=== PATIENT | female | born 1960 | race Caucasian/White ===

== ENCOUNTER → 2017-01-04 | Outpatient (CLI) | payer BC ==
[~2017-01-04] MED LIST: MULT-234 PO; MULTTAB58 PO; OMEG12006 PO
--- NOTE | 2017-01-04 12:38 | MAMMOGRAPHY REPORT ---
BILATERAL DIGITAL SCREENING MAMMOGRAM TOMOSYNTHESIS WITH CAD: 01/04/2017 CLINICAL HISTORY: Routine screening. Patient has no complaints. TECHNIQUE: Breast tomosynthesis in addition to standard 2D mammography was performed. Current study was also evaluated with a Computer Aided Detection (CAD) system. COMPARISON: Comparison is made to exams dated: 01/01/2016 mammogram, 12/19/2013 mammogram, 12/30/2014 ma mmogram, 12/24/2013 mammogram, 11/05/2012 mammogram, and 11/03/2011 mammogram - [facility]. BREAST COMPOSITION: The tissue of both breasts is heterogeneously dense, which may obscure small ma sses. FINDINGS: No suspicious masses, calcifications, or areas of architectural distortion are noted in e ither breast. There has been no significant interval change compared to prior exams. IMPRESSION: ACR BI-RADS CATEGORY 1: NEGATIVE There is no mammographic evidence of malignancy. A 1 year screening mammogram is recommended. The p atient will receive written notification of the results. Approximately 10% of breast cancers are not detected with mammography. A negative mammographic repor t should not delay biopsy if a clinically suggestive mass is present. Celine Ty M.D. ah/:01/04/2017 12:02:55 Health Policy Manager: Aicha WHEELER(R)(M), [facility] letter sent: Normal 1/2 BI-RADS Code: ACR BI-RADS Category 1: Negative
== END | disposition home or self-care (01) ==
LOC: C.MAMM 08:03
PROVIDERS: ATTEND Family Medicine
DX: Z12.31 Encounter for screening mammogram for malignant neoplasm of breast (principal)

== ENCOUNTER → 2018-01-08 | Outpatient (CLI) | payer OTHER ==
--- NOTE | 2018-01-09 15:14 | MAMMOGRAPHY REPORT ---
BILATERAL DIGITAL SCREENING MAMMOGRAM TOMOSYNTHESIS WITH CAD: 01/08/2018 CLINICAL HISTORY: Routine screening. TECHNIQUE: Breast tomosynthesis in addition to standard 2D mammography was performed. Current study was also evaluated with a Computer Aided Detection (CAD) system. COMPARISON: Comparison is made to exams dated: 01/04/2017 mammogram, 01/01/2016 mammogram, 12/30/2014 mamm ogram, 12/19/2013 mammogram, 11/05/2012 mammogram, and 11/03/2011 mammogram - [facility] . BREAST COMPOSITION: The tissue of both breasts is heterogeneously dense, which may obscure small mas ses. FINDINGS: There are benign rim calcifications in the left breast. No suspicious mass, architectural distortion or cluster of microcalcifications is seen. IMPRESSION: ACR BI-RADS CATEGORY 1: NEGATIVE There is no mammographic evidence of malignancy. A 1 year screening mammogram is recommended. The pa tient will receive written notification of the results. Approximately 10% of breast cancers are not detected with mammography. A negative mammographic report should not delay biopsy if a clinically suggestive mass is present. Yee Corley M.D. ay/:01/08/2018 16:37:39 Collections Specialist: Edel WHEELER(Felice)(M), [facility] letter sent: Normal 1/2 BI-RADS Code: ACR BI-RADS Category 1: Negative
== END | disposition home or self-care (01) ==
LOC: C.MAMM 07:56
PROVIDERS: ATTEND Family Medicine
DX: Z12.31 Encounter for screening mammogram for malignant neoplasm of breast (principal)

== ENCOUNTER 2021-10-25 12:27 | Inpatient (IN) ==
[2021-10-25 14:55] LABS: Hematocrit (blood only) 33.1 % (37-47); Hemoglobin 11.1 g/dL (12.0-16.0); Mean Corpuscular Hemoglobin 29.3 pg (25-34); Mean Corpuscular Hgb Conc 33.5 g/dL (32-36); Mean Corpuscular Volume 87.3 fL (80-100); Mean Platelet Volume 9.5 fL (7.4-10.4); Platelet Count 378 K/uL (130-400); RDW Coefficient of Variation 13.9 % (11.5-14.5); RDW Standard Deviation 44.9 fL (36.4-46.3); Red Blood Count 3.79 M/uL (4.2-5.4); White Blood Count 25.49 K/uL (4.8-10.8)
[2021-10-25 15:17] LABS: Albumin Level 2.8 gm/dl (3.4-5.0); BUN Creatinine Ratio 12.9 (10-20); Calcium 9.4 mg/dl (8.5-10.1); Creatinine Clr Calc Pharmacy 93.3 ml/min; Est GFR (African American) 117.2 ml/min; Est GFR (Non-African American) 101.1 ml/min; Potassium 3.7 mmol/L (3.5-5.1)
[2021-10-25 15:20] LABS: Albumin Globulin Ratio 0.6 (0.9-2); Bilirubin,Total 0.6 mg/dl (0.2-1); Total Protein 7.8 gm/dl (6.4-8.2)
[2021-10-25 15:49] LABS: Basophils # (auto) 0.04 K/uL (0-0.2); Basophils % (auto) 0.2 %; Eosinophils # (auto) 0.01 K/uL (0-0.5); Immature Granulocytes # (auto) 0.29 K/uL (0.00-0.02); Immature Granulocytes % (auto) 1.1 %; Lymphocytes # (auto) 1.09 K/uL (1.2-3.4); Lymphocytes % (auto) 4.3 %; Monocytes # (auto) 2.06 K/uL (0.11-0.59); Monocytes % (auto) 8.1 %; Neutrophils % (auto) 86.3 %
[2021-10-25] MEDS ORDERED: SODIUM CHLORIDE 0.9% 1000ML 1,000 ML IV ONE (17:04)
[2021-10-25] MEDS ORDERED: MIDAZOLAM HCL 1 MG/ML 2ML VIAL IV STA (17:15)
--- NOTE | 2021-10-25 17:17 | Emergency Department Note ---
Impression & Plan Headache, Leukocytosis ADMIT ED Provider Note HPI: The patient is a 61-year-old female who presents the emergency department with a chief complaint of posterior headache and neck pain for the past 5 days. Patient states that approximately 5 days ago she noted that she had a fever, she states she also had some sinus congestion at that time. She states that she had some difficulty sleeping overnight because of some posterior neck pain and headache. She states that the symptoms have been relatively persistent for the past 5 days. Her headache is localized to the base of her skull and suboccipital muscle area. She has limited range of motion of her neck secondary to pain. On arrival here to the ED the patient is afebrile, she is saturating well on room air, she is alert, she is otherwise in mild distress secondary to her headache but hemodynamically stable on arrival. ROS: -Neuro: Posterior headache *10 point review systems was conducted and is otherwise negative unless stated above *Outpatient medications and allergy history reviewed PE: General: Alert, NAD HEENT: Normocephalic, atraumatic, trachea midline Eyes: Extraocular eye movement is intact, no scleral erythema Pulmonary: Clear to auscultation bilaterally, no wheezing Cardio: Regular rate and rhythm GI: Abdomen is soft, nontender : No suprapubic tenderness MSK: No evidence of trauma or malformation of the extremities, no edema, there is firm and tender musculature in the area of the suboccipital muscles bilaterally, limited range of motion of the neck secondary to pain and muscle tenderness Skin: No evidence of rash Neuro: Alert, no focal deficits Psychiatric: Cooperative Lumbar puncture: Verbal consent was obtained. Patient was placed in a seated position, L3/L4 interspace was identified, patient was sterilely prepped and draped. L3/L4 interspace was prepped, anesthetized using 1% lidocaine without epinephrine. 22-gauge needle was advanced and bony resistance was met, there was slight repositioning of the needle in the cephalad direction and it was advanced again. Stylet was removed and clear CSF was drained from the spinal needle. Tubes 1 through 4 were collected. Stylette was replaced. Needle was withdrawn. Patient tolerated the procedure well. manual arts teacher: - An order was placed for continuous cardiac monitoring - Patient was noted to be in sinus rhythm with rate of 102 Medical Decision Making: Patient presented with posterior headache for the past 5 days, states she is also had some sinus congestion, states she had a fever 5 days ago, she arrives to the emergency department with limited range of motion of her neck secondary to pain. Labwork does show evidence of a significant leukocytosis greater than 25,000, blood cultures were ordered in the ED, CT imaging of the head does not show any evidence of an acute intracranial process. Procalcitonin is also noted to be slightly elevated. Patient was given IV fluids here in the ED. She was also given IV morphine for pain. Given that the patient had a posterior headache in the setting of a recent fever and a significant leukocytosis, I did discuss lumbar puncture with the patient and she is in agreement. Lumbar puncture was performed at the bedside by myself, please see procedure note for details. CSF analysis reveals a white blo od cell count elevation to 126, protein is also elevated, glucose is within normal limits. Meningitis PCR panel was sent and is negative. Gram stain is also noted to be negative. Culture is pending. Also will send for fungal culture. Patient was initiated on broad-spectrum antibiotics with vancomycin and ceftriaxone following lumbar puncture. On re-evaluation patient states that her headache is still present. I did discuss the case with the on-call hospitalist for [facility], Dr. Narayanan, patient will be admitted to the hospitalist service for further management. Patient is in agreement to the above plan she was admitted in stable condition. Diagnosis: 1. Posterior headache 2. Significant/severe leukocytosis 3. Elevated procalcitonin 4. Elevated white blood cell count on CSF analysis 5. Rule out meningitis Disposition: Admission Rl Villa DO Emergency Medicine Past Med/Surg History Social History Smoking Status: Never smoker Preferred Language: Setswana Feels Safe at Home: Yes Allergies Allergies Allergy/AdvReac Type Severity Reaction Status Date / Time No Known Allergies Allergy Verified 10/25/21 16:49 Home Meds Home Medications Medication Instructions Recorded Confirmed acetaminophen 650 mg 1,300 mg PO Q12H PRN 10/25/21 10/25/21 tablet,extended release fexofenadine 180 mg tablet 180 mg PO DAILY 10/25/21 10/25/21 [id number] 1 tab PO DAILY 10/25/21 10/25/21 tablet (Multivitamin 50 Plus) naproxen sodium 220 mg tablet 440 mg PO BID PRN 10/25/21 10/25/21 (Aleve) omega-3 fatty acids-fish oil 684 1 cap PO DAILY 10/25/21 10/25/21 mg-1,200 mg capsule,delayed release vit A 7,160 unit-vit C 113 mg-vit 1 tab PO DAILY 10/25/21 10/25/21 E-zinc gj-fsvpew-npfzfh 1 mg tablet ([facility]) Results & Data (ED) Vital Signs Vital Signs - 24 hr 10/25/21 12:54 10/25/21 16:48 10/25/21 17:30 Temperature 36.3 C L Temperature Source Temporal Artery Scan Pulse Rate 93 H Pulse Rate [Apical] 88 102 H Pulse Rhythm Regular Pulse Rhythm [Apical] Regular Regular Pulse Strength Normal Respiratory Rate 20 16 16 Respiratory Effort / Characteristics Non-Labored Spontaneous Non-Labored Non-Labored Respiratory Depth Normal Normal Normal Respiratory Pattern Regular Blood Pressure 123/80 Blood Pressure [Right Arm] 134/86 132/78 Blood Pressure Mean 94 Blood Pressure Mean [Right Arm] 102 96 Blood Pressure Position Sitting Pulse Oximetry 100 98 95 Oxygen Delivery Method Room Air Room Air Room Air Sepsis Recent Fever Within 48 Hours No Sepsis New/Unexplained Change in Mental Status No Sepsis Action Taken by Nursing No Action Required 10/25/21 18:30 Temperature Temperature Source Pulse Rate Pulse Rate [Apical] 96 H Pulse Rhythm Pulse Rhythm [Apical] Regular Pulse Strength Respiratory Rate 16 Respiratory Effort / Characteristics Non-Labored Respiratory Depth Normal Respiratory Pattern Blood Pressure Blood Pressure [Right Arm] 132/88 Blood Pressure Mean Blood Pressure Mean [Right Arm] 102 Blood Pressure Position Pulse Oximetry 99 Oxygen Delivery Method Room Air Sepsis Recent Fever Within 48 Hours Sepsis New/Unexplained Change in Mental Status Sepsis Action Taken by Nursing Laboratory Data Result diagrams: 10/25/21 14:46 10/25/21 14:46 Lab Results 10/25/21 10/25/21 10/25/21 Range/Units 14:46 14:46 14:46 WBC 25.49 H (4.8-10.8) K/uL RBC 3.79 L (4.2-5.4) M/uL Hgb 11.1 L (12.0-16.0) g/dL Hct 33.1 L (37-47) % MCV 87.3 (80-100) fL MCH 29.3 (25-34) pg MCHC 33.5 (32-36) g/dL RDW Std Deviation 44.9 (36.4-46.3) fL RDW Coeff of Lynda 13.9 (11.5-14.5) % Plt Count 378 (130-400) K/uL MPV 9.5 (7.4-10.4) fL Immature Gran % (Auto) 1.1 % Neut % (Auto) 86.3 % Lymph % (Auto) 4.3 % Boyd % (Auto) 8.1 % Eos % (Auto) 0.0 % Baso % (Auto) 0.2 % Neut # (Auto) 22.00 H (1.4-6.5) K/uL Lymph # (Auto) 1.09 L (1.2-3.4) K/uL Boyd # (Auto) 2.06 H (0.11-0.59) K/uL Eos # (Auto) 0.01 (0-0.5) K/uL Baso # (Auto) 0.04 (0-0.2) K/uL Immature Gran # (Auto) 0.29 H (0.00-0.02) K/uL Sodium 133 L (136-145) mmol/L Potassium 3.7 (3.5-5.1) mmol/L Chloride 96 L (98-107) mmol/L Carbon Dioxide 30 (21-32) mmol/L Anion Gap 7.0 (3-11) BUN 7 (7-18) mg/dl Creatinine 0.54 L (0.6-1.2) mg/dl Est Cr Clr Drug Dosing 93.3 ml/min Est GFR ( Amer) 117.2 ml/min Est GFR (Non-Af Amer) 101.1 ml/min BUN/Creatinine Ratio 12.9 (10-20) Glucose 112 H (70-99) mg/dl Lactate (0.4-2.0) mmol/L Calcium 9.4 (8.5-10.1) mg/dl Total Bilirubin 0.6 (0.2-1) mg/dl AST 37 (15-37) U/L ALT 116 H (12-78) Alkaline Phosphatase 217 H (45-117) U/L Total Protein 7.8 (6.4-8.2) gm/dl Albumin 2.8 L (3.4-5.0) gm/dl Globulin 5.0 H (2.5-4.0) gm/dl Albumin/Globulin Ratio 0.6 L (0.9-2) Procalcitonin 0.69 H (0-0.5) ng/ml Fluid Comment CSF Appearance CSF Color Xanthrochromic CSF WBC (0-5) /uL CSF RBC (0-) /uL CSF Cell Count Tube # CSF Mononuclear WBCs % % CSF Polynuclear WBCs % % CSF Chemistry Tube # CSF Glucose (40-70) mg/dl CSF Total Protein (15-45) mg/dl CSF C.neoform/gat PCR (NotDetected) CSF CMV DNA (PCR) (NotDetected) CSF Enterovirus (PCR) (NotDetected) CSF E. coli K1 (PCR) (NotDetected) CSF H. influenzae (PCR) (NotDetected) CSF HSV I (PCR) (NotDetected) CSF HSV II (PCR) (NotDetected) CSF HHV 6 (PCR) (NotDetected) CSF L.monocytogenes PCR (NotDetected) CSF N. meningitidis PCR (NotDetected) CSF Parechovirus (PCR) (NotDetected) CSF S. agalactiae (PCR) (NotDetected) CSF S. pneumoniae (PCR) (NotDetected) CSF VZV DNA (PCR) (NotDetected) SARS-CoV-2 (PCR) (Negative) Influenza Type A (PCR) (Neg) Influenza Type B (PCR) (Neg) RSV (RT-PCR) (Neg) 10/25/21 10/25/21 10/25/21 Range/Units 17:25 17:45 19:48 WBC (4.8-10.8) K/uL RBC (4.2-5.4) M/uL Hgb (12.0-16.0) g/dL Hct (37-47) % MCV (80-100) fL MCH (25-34) pg MCHC (32-36) g/dL RDW Std Deviation (36.4-46.3) fL RDW Coeff of Lynda (11.5-14.5) % Plt Count (130-400) K/uL MPV (7.4-10.4) fL Immature Gran % (Auto) % Neut % (Auto) % Lymph % (Auto) % Boyd % (Auto) % Eos % (Auto) % Baso % (Auto) % Neut # (Auto) (1.4-6.5) K/uL Lymph # (Auto) (1.2-3.4) K/uL Boyd # (Auto) (0.11-0.59) K/uL Eos # (Auto) (0-0.5) K/uL Baso # (Auto) (0-0.2) K/uL Immature Gran # (Auto) (0.00-0.02) K/uL Sodium (136-145) mmol/L Potassium (3.5-5.1) mmol/L Chloride (98-107) mmol/L Carbon Dioxide (21-32) mmol/L Anion Gap (3-11) BUN (7-18) mg/dl Creatinine (0.6-1.2) mg/dl Est Cr Clr Drug Dosing ml/min Est GFR ( Amer) ml/min Est GFR (Non-Af Amer) ml/min BUN/Creatinine Ratio (10-20) Glucose (70-99) mg/dl Lactate 0.8 (0.4-2.0) mmol/L Calcium (8.5-10.1) mg/dl Total Bilirubin (0.2-1) mg/dl AST (15-37) U/L ALT (12-78) Alkaline Phosphatase (45-117) U/L Total Protein (6.4-8.2) gm/dl Albumin (3.4-5.0) gm/dl Globulin (2.5-4.0) gm/dl Albumin/Globulin Ratio (0.9-2) Procalcitonin (0-0.5) ng/ml Fluid Comment CSF Appearance CSF Color Xanthrochromic CSF WBC (0-5) /uL CSF RBC (0-) /uL CSF Cell Count Tube # CSF Mononuclear WBCs % % CSF Polynuclear WBCs % % CSF Chemistry Tube # CSF Glucose (40-70) mg/dl CSF Total Protein (15-45) mg/dl CSF C.neoform/gat PCR Not Detected (NotDetected) CSF CMV DNA (PCR) Not Detected (NotDetected) CSF Enterovirus (PCR) Not Detected (NotDetected) CSF E. coli K1 (PCR) Not Detected (NotDetected) CSF H. influenzae (PCR) Not Detected (NotDetected) CSF HSV I (PCR) Not Detected (NotDetected) CSF HSV II (PCR) Not Detected (NotDetected) CSF HHV 6 (PCR) Not Detected (NotDetected) CSF L.monocytogenes PCR Not Detected (NotDetected) CSF N. meningitidis PCR Not Detected (NotDetected) CSF Parechovirus (PCR) Not Detected (NotDetected) CSF S. agalactiae (PCR) Not Detected (NotDetected) CSF S. pneumoniae (PCR) Not Detected (NotDetected) CSF VZV DNA (PCR) Not Detected (NotDetected) SARS-CoV-2 (PCR) NEGATIVE (Negative) Influenza Type A (PCR) Negative (Neg) Influenza Type B (PCR) Negative (Neg) RSV (RT-PCR) Negative (Neg) 10/25/21 Range/Units 19:48 WBC (4.8-10.8) K/uL RBC (4.2-5.4) M/uL Hgb (12.0-16.0) g/dL Hct (37-47) % MCV (80-100) fL MCH (25-34) pg MCHC (32-36) g/dL RDW Std Deviation (36.4-46.3) fL RDW Coeff of Lynda (11.5-14.5) % Plt Count (130-400) K/uL MPV (7.4-10.4) fL Immature Gran % (Auto) % Neut % (Auto) % Lymph % (Auto) % Boyd % (Auto) % Eos % (Auto) % Baso % (Auto) % Neut # (Auto) (1.4-6.5) K/uL Lymph # (Auto) (1.2-3.4) K/uL Boyd # (Auto) (0.11-0.59) K/uL Eos # (Auto) (0-0.5) K/uL Baso # (Auto) (0-0.2) K/uL Immature Gran # (Auto) (0.00-0.02) K/uL Sodium (136-145) mmol/L Potassium (3.5-5.1) mmol/L Chloride (98-107) mmol/L Carbon Dioxide (21-32) mmol/L Anion Gap (3-11) BUN (7-18) mg/dl Creatinine (0.6-1.2) mg/dl Est Cr Clr Drug Dosing ml/min Est GFR ( Amer) ml/min Est GFR (Non-Af Amer) ml/min BUN/Creatinine Ratio (10-20) Glucose (70-99) mg/dl Lactate (0.4-2.0) mmol/L Calcium (8.5-10.1) mg/dl Total Bilirubin (0.2-1) mg/dl AST (15-37) U/L ALT (12-78) Alkaline Phosphatase (45-117) U/L Total Protein (6.4-8.2) gm/dl Albumin (3.4-5.0) gm/dl Globulin (2.5-4.0) gm/dl Albumin/Globulin Ratio (0.9-2) Procalcitonin (0-0.5) ng/ml Fluid Comment CSF Appearance CLEAR CSF Color COLORLESS Xanthrochromic NO CSF WBC 126 H* (0-5) /uL CSF RBC 0 (0-) /uL CSF Cell Count Tube # 3 CSF Mononuclear WBCs % 71.0 % CSF Polynuclear WBCs % 29.0 % CSF Chemistry Tube # 1 CSF Glucose 58 (40-70) mg/dl CSF Total Protein 70.5 H (15-45) mg/dl CSF C.neoform/gat PCR (NotDetected) CSF CMV DNA (PCR) (NotDetected) CSF Enterovirus (PCR) (NotDetected) CSF E. coli K1 (PCR) (NotDetected) CSF H. influenzae (PCR) (NotDetected) CSF HSV I (PCR) (NotDetected) CSF HSV II (PCR) (NotDetected) CSF HHV 6 (PCR) (NotDetected) CSF L.monocytogenes PCR (NotDetected) CSF N. meningitidis PCR (NotDetected) CSF Parechovirus (PCR) (NotDetected) CSF S. agalactiae (PCR) (NotDetected) CSF S. pneumoniae (PCR) (NotDetected) CSF VZV DNA (PCR) (NotDetected) SARS-CoV-2 (PCR) (Negative) Influenza Type A (PCR) (Neg) Influenza Type B (PCR) (Neg) RSV (RT-PCR) (Neg) Administered Medications Vancomycin HCl 1,250 mg/ (Sodium Chloride) 525 mls @ 200 mls/hr IV NOW ONE Stop: 10/25/21 22:28 Last Admin: 10/25/21 20:26 Dose: 200 mls/hr Documented by: [id number] Discontinued Medications Sodium Chloride (Nss 1000ml) 1,000 mls @ 999 mls/hr IV .Q1H1M ONE Stop: 10/25/21 18:04 Last Infusion: 10/25/21 18:45 Dose: 0 mls/hr Documented by: [id number] Admin: 10/25/21 17:40 Dose: 999 mls/hr Documented by: [id number] Ceftriaxone Sodium (Rocephin) 1,000 mg in 50 mls @ 100 mls/hr IV NOW STA Stop: 10/25/21 20:20 Last Infusion: 10/25/21 20:26 Dose: 0 mls/hr Documented by: [id number] Admin: 10/25/21 20:04 Dose: 100 mls/hr Documented by: [id number] Midazolam HCl (Midazolam Hcl 1 Mg/Ml 2ml Vial) 2 mg IV NOW STA Stop: 10/25/21 17:16 Last Admin: 10/25/21 17:41 Dose: 2 mg Documented by: [id number] Morphine Sulfate (Morphine Sulfate 4 Mg/Ml 1 Ml Carp\Vial) 4 mg IV NOW STA Stop: 10/25/21 21:29 Last Admin: 10/25/21 21:34 Dose: 4 mg Documented by: [id number] Ondansetron HCl (Ondansetron Inj 2 Mg/Ml 2 Ml Vial) Confirm Administered Dose 4 mg .ROUTE .STK-MED ONE Stop: 10/25/21 17:39 Last Admin: 10/25/21 17:40 Dose: 4 mg Documented by: [id number] Imaging Data Radiologist's Impression: Head CT 10/25/21 17:03 CT SCAN OF THE BRAIN WITHOUT IV CONTRAST CLINICAL HISTORY: Headache. COMPARISON STUDY: CT of the brain dated 06/30/2013. TECHNIQUE: Unenhanced axial CT scan of the brain is performed from the vertex to the skull base. A dose lowering technique was utilized adhering to the principles of ALARA. CT DOSE: 638.56 mGycm FINDINGS: Brain parenchyma: The brain parenchyma is normal in appearance. There is no hemorrhage, mass effect, or evidence of acute territorial ischemia by CT criteria. Martínez-white matter differentiation is preserved. No extra-axial fluid collection is seen. Ventricles, sulci, cisterns: Normal in configuration. Intracranial vasculature: There is mild atherosclerotic calcification of the cavernous carotid arteries. Calvarium: Unremarkable. Sinuses and mastoids: An air-fluid level is noted in the right maxillary antrum. The remaining visualized paranasal sinuses are clear. The mastoid air cells are well pneumatized. Orbits: The bony orbits are grossly intact. IMPRESSION: There is no hemorrhage, mass effect, or evidence of acute territorial ischemia by CT criteria. ACT 112: Negative or not required by law. Electronically signed by: Elías Begum M.D. 10/25/2021 6:46 PM Discharge Plan Visit Data Chief Complaint: Neck Injury/Pain Stated Complaint: NECK PAIN ED Provider: Rl Villa Discharge Problem: Headache, Leukocytosis Forms Stand Alone Forms: [facility] [employer] Prescriptions Prescriptions: No Action fexofenadine [Es] 180 mg Tablet 180 mg PO DAILY RF: 0 acetaminophen [Tylenol Arthritis] 650 mg Tablet Extended Release 1,300 mg PO Q12H PRN (Reason: Pain) RF: 0 naproxen sodium [Aleve] 220 mg Tablet 440 mg PO BID PRN (Reason: Pain) RF: 0 Multivitamin 50 Plus Tablet 1 tab PO DAILY RF: 0 [place] 3 Fish Oil 684-1,200 mg Capsule,Delayed Release(Dr/Ec) 1 cap PO DAILY RF: 0 [facility] 7,160 unit- 113 mg-1 mg Tablet 1 tab PO DAILY RF: 0 Referrals Referrals: Elroy Olivo DO [Primary Care Provider] - Discharge Problem: Headache Qualifiers: Headache type: unspecified Headache chronicity pattern: unspecified pattern Intractability: intractable Qualified Code(s): R51.9 - Headache, unspecified Leukocytosis Qualifiers: Leukocytosis type: unspecified Qualified Code(s): D72.829 - Elevated white blood cell count, unspecified
[2021-10-25] MEDS ORDERED: ONDANSETRON INJ 2 MG/ML 2 ML VIAL ONE (17:38)
[2021-10-25 18:36] LABS: Influenza A virus by PCR Negative (Neg); Influenza B virus by PCR Negative (Neg); RSV by PCR Negative (Neg); SARS CoV2 RNA(COVID-19) InHosp NEGATIVE (Negative)
--- NOTE | 2021-10-25 18:48 | CT Scan Report ---
CT SCAN OF THE BRAIN WITHOUT IV CONTRAST CLINICAL HISTORY: Headache. COMPARISON STUDY: CT of the brain dated 06/30/2013. TECHNIQUE: Unenhanced axial CT scan of the brain is performed from the vertex to the skull base. A d ose lowering technique was utilized adhering to the principles of ALARA. CT DOSE: 638.56 mGycm FINDINGS: Brain parenchyma: The brain parenchyma is normal in appearance. There is no hemorrhage, mass effect, or evidence of acute territorial ischemia by CT criteria. Martínez-white matter differentiation is preser grazyna. No extra-axial fluid collection is seen. Ventricles, sulci, cisterns: Normal in configuration. Intracranial vasculature: There is mild atherosclerotic calcification of the cavernous carotid arteri es. Calvarium: Unremarkable. Sinuses and mastoids: An air-fluid level is noted in the right maxillary antrum. The remaining visual ized paranasal sinuses are clear. The mastoid air cells are well pneumatized. Orbits: The bony orbits are grossly intact. IMPRESSION: There is no hemorrhage, mass effect, or evidence of acute territorial ischemia by CT mandeep rucker. ACT 112: Negative or not required by law. Electronically signed by: Elías Begum M.D. 10/25/2021 6:46 PM
[2021-10-25] MEDS ORDERED: VANCOMYCIN HCL 1,250 MG in SODIUM CHLORIDE 0.9% 500 ML IV ONE (19:51)
[2021-10-25] MEDS ORDERED: VANCOMYCIN CONSULT ACTIVE PRN (19:51)
[2021-10-25] MEDS ORDERED: cefTRIAXone SODIUM 1,000 MG/50 ML BAG IV STA ×2 (19:51→23:21)
[2021-10-25 20:27] LABS: CSF Glucose 58 mg/dl (40-70)
[2021-10-25 20:28] LABS: Total Protein CSF 70.5 mg/dl (15-45)
[2021-10-25 20:48] LABS: CSF Chemistry Tube # 1
[2021-10-25 20:50] LABS: Appearance CSF CLEAR; CSF Count Tube # 3; CSF Xanthrochromic NO; Color CSF COLORLESS
[2021-10-25 20:52] LABS: Red Blood Cell CSF (A) 0 /uL (0-); Red Blood Cell CSF (B) 1 /uL (0-); White Blood Cell CSF (B) 120 /uL (0-5)
[2021-10-25 20:53] LABS: White Blood Cell CSF (A) 126 /uL (0-5)
[2021-10-25] MEDS ORDERED: MoRPHine SULFATE 4 MG/ML 1 ML CARP\\VIAL IV STA (21:28)
[2021-10-25 21:48] LABS: Cryptococcus neoformans/ga PCR Not Detected (NotDetected); Cytomegalovirus PCR Not Detected (NotDetected); Enterovirus PCR Not Detected (NotDetected); Escherichia coli K1 PCR Not Detected (NotDetected); Haemophilius influenzae PCR Not Detected (NotDetected); Herpes Simplex Virus 1 PCR Not Detected (NotDetected); Herpes Simplex Virus 2 PCR Not Detected (NotDetected); Human Herpes Virus 6 PCR Not Detected (NotDetected); Human Parechovirus PCR Not Detected (NotDetected); Listeria monocytogenes PCR Not Detected (NotDetected); Neisseria meningitidis PCR Not Detected (NotDetected); Streptococcus agalactiae PCR Not Detected (NotDetected); Streptococcus pneumoniae PCR Not Detected (NotDetected); Varicella Zoster Virus PCR Not Detected (NotDetected)
[2021-10-25 23:03] LABS: Appearance Urine Clear (Clear); Bacteria Urine Automated Negative (Negative); Bilirubin Urine Negative (Negative); Blood Urine Trace (Negative); Cast Urine Automated 0 /lpf (0-5); Color Urine Yellow; Epithelial Cell Urine Auto 20-30 /lpf (0-5); Glucose Urine UA Negative (Negative); Ketones Urine 2+ (Negative); Leukocyte Esterase Urine Negative (Negative); Nitrite Urine Positive (Negative); Protein Urine Trace (Negative); RBC Urine Automated 0-4 /hpf (0-4); Specific Gravity Urine 1.009 (1.000-1.030); Urobilinogen Urine Negative (Negative); pH Urine 6.5 (4.5-7.5)
[2021-10-25] MEDS ORDERED: cefTRIAXone SODIUM 1,000 MG in DEXTROSE 5% 50 ML IV STA (23:12)
--- NOTE | 2021-10-26 01:35 | History and Physical Report ---
DATE OF ADMISSION: 10/25/2021. CHIEF COMPLAINT: Severe neck pain and neck stiffness. HISTORY OF PRESENT ILLNESS: A 61-year-old female with past medical history significant for allergic rhinitis, presents with severe neck pain, neck stiffness going on for a week. A few days back, she also had a high temperature of 103 degrees. She is COVID vaccinated with a booster also given and she came to the ER today and her white count was 25,[address] of the head was unremarkable. Lumbar puncture done in the ER showed CSF WBC 126, CSF total protein 70. PCR for Cryptococcus neoformans, CMV enterovirus, E. coli, H influenza, HSV 1 and 2, HHV-6, Listeria, Neisseria. Strep pneumoniae and Strep agalactiae are not detected. Currently, the patient has headache and also back pain and neck stiffness and neck pain. Was nauseous. No chest pain, no shortness of breath. Has some runny nose from her sinuses and cough from her sinuses. Appetite is down. No shortness of breath. Normal bowel and bladder movements. Urine is somewhat dark. No blood in the stools or black stools. Hemodynamically stable. ALLERGIES: No known drug allergies. PAST MEDICAL HISTORY: As mentioned above. PAST SURGICAL HISTORY: Colonoscopy, dental surgery. MEDICATIONS: The patient is on Tylenol Arthritis p.r.n., Es 180 mg p.o. daily, multivitamins 1 tablet p.o. daily, naproxen 440 mg p.o. b.i.d. p.r.n., fish oil 1 capsule p.o. daily. FAMILY HISTORY: Significant for mother has arthritis, eye problem, hypertension; daughter has thyroid cancer; father has diabetes; brother has eye problems; father has eye problems; mother has eye problems. SOCIAL HISTORY: . No smoking. Alcohol about four glasses of wine per week. No drug use. REVIEW OF SYSTEMS: As per HPI. Rest of the review of systems is negative. PHYSICAL EXAMINATION: GENERAL: The patient is alert and oriented, not in acute distress. VITAL SIGNS: Temperature 36.9, pulse 102, respiratory rate 20, blood pressure 133/82, oxygen 94% on room air. HEENT: No pallor. No icterus. Oral mucosa moist. NECK: No neck masses seen. Neck tenderness present. Neck stiffness present. CARDIOVASCULAR: S1 and S2 heard. Regular rate and rhythm. No murmur, no gallop. RESPIRATORY: Normal AP diameter. No accessory muscle use. No wheezing, no crackles. ABDOMEN: Soft, bowel sounds present, nontender, no distention. CENTRAL NERVOUS SYSTEM: Cranial nerves II-XII grossly intact, nonfocal. EXTREMITIES: No edema, no erythema. LABORATORY DATA: WBC 25, hemoglobin 11.1, hematocrit 33.1, platelets 378. Sodium 133, potassium 3.7, chloride 96, bicarbonate 30, BUN 7, creatinine 0.5, serum glucose 112. Lactate 0.8, calcium 9.4, total bilirubin 0.6, AST 37, ALT 116, alkaline phosphatase 217. Procalcitonin 0.69. Urinalysis, +2 ketones plus positive nitrite. Lumbar puncture, CSF WBCs 126, total protein 70.5, glucose is 58, color is colorless and PCR for C. neoformans and CMV DNA enterovirus, E. coli, H. influenza, HSV 1, HSV 2, HHV-6, Listeria monocytogenes. Neisseria meningitidis, parechovirus, Strep agalactiae, Strep pneumoniae, VZV DNA, all PCR are negative so far. SARS-CoV-2 PCR negative. Influenza A and B PCR negative. RSV PCR negative. IMAGING DATA: CT of the head, no acute findings. ASSESSMENT AND PLAN: This is a 61-year-old female who presents with severe neck pain, neck stiffness, and found to have meningitis. 1. Severe neck pain, neck stiffness, meningitis, bacterial versus viral meningitis. CSF WBC 126, C-reactive protein is 70, CSF glucose is 58, it is colorless, and so far all the PCR studies as mentioned above are negative. ER empirically started on vancomycin and Rocephin, which will be continued. Follow the final cultures and consult ID for further recommendation. Pain control with morphine p.r.n. Closely monitor in the [place] [employer] tele. 2. History of allergic rhinitis: Continue fexofenadine. 3. Deep venous thrombosis prophylaxis: Lovenox. DISPOSITION: Closely monitor in the [place] [employer] tele. PT/OT prior to discharge. Social service to help with discharge planning. Job ID: [id number] [facility]
[2021-10-26] MEDS ORDERED: NITROGLYCERIN SL 0.4 MG/TAB TAB SL PRN (02:17)
[2021-10-26] MEDS ORDERED: ONDANSETRON INJ 2 MG/ML 2 ML VIAL IV PRN (02:17)
[2021-10-26] MEDS: ACETAMINOPHEN 325 MG TAB PO PRN ×2 (03:13→22:25)
[2021-10-26] MEDS: MoRPHine SULFATE 4 MG/ML 1 ML CARP\\VIAL IV PRN ×3 (03:16→22:27)
[2021-10-26] MEDS: ENOXAPARIN INJ 40 MG/0.4 ML SYR SQ SCH (05:44)
[2021-10-26 05:54] LABS: Hematocrit (blood only) 29.3 % (37-47); Hemoglobin 9.7 g/dL (12.0-16.0); Mean Corpuscular Hgb Conc 33.1 g/dL (32-36); Mean Corpuscular Volume 87.7 fL (80-100); Mean Platelet Volume 9.9 fL (7.4-10.4); Platelet Count 373 K/uL (130-400); RDW Coefficient of Variation 14.2 % (11.5-14.5); RDW Standard Deviation 45.8 fL (36.4-46.3); Red Blood Count 3.34 M/uL (4.2-5.4); White Blood Count 24.82 K/uL (4.8-10.8)
[2021-10-26 06:16] LABS: Basophils # (auto) 0.03 K/uL (0-0.2); Basophils % (auto) 0.1 %; Eosinophils # (auto) 0.02 K/uL (0-0.5); Eosinophils % (auto) 0.1 %; Immature Granulocytes # (auto) 0.17 K/uL (0.00-0.02); Immature Granulocytes % (auto) 0.7 %; Lymphocytes # (auto) 0.98 K/uL (1.2-3.4); Lymphocytes % (auto) 3.9 %; Monocytes # (auto) 2.78 K/uL (0.11-0.59); Monocytes % (auto) 11.2 %; Neutrophils # (auto) 20.84 K/uL (1.4-6.5)
[2021-10-26 06:30] LABS: BUN Creatinine Ratio 11.8 (10-20); Calcium 8.8 mg/dl (8.5-10.1); Creatinine Clr Calc Pharmacy 107.2 ml/min; Est GFR (African American) 122.7 ml/min; Est GFR (Non-African American) 105.9 ml/min; Magnesium 2.2 mg/dl (1.8-2.4); Potassium 3.3 mmol/L (3.5-5.1)
[2021-10-26] MEDS ORDERED: [UNRECOGNIZED DRUG - OTHER] PO SCH (09:00)
[2021-10-26] MEDS: FEXOFENADINE HCL 180 MG TAB PO SCH (09:28)
[2021-10-26] MEDS: VANCOMYCIN HCL 1,250 MG in SODIUM CHLORIDE 0.9% 250 ML IV SCH ×2 (09:28→21:34)
[2021-10-26] MEDS: CEROVITE ADV FORMULA TAB PO SCH (09:28)
[2021-10-26] MEDS: SODIUM CHLORIDE 0.9% 1000ML 1,000 ML IV SCH ×2 (11:25→15:57)
[2021-10-26] MEDS: cefTRIAXone SODIUM 2,000 MG in DEXTROSE 5% 50 ML IV SCH (11:25)
[2021-10-26] MEDS: ACYCLOVIR SOD 600 MG in DEXTROSE 5% 100 ML IV SCH ×2 (11:25→19:03)
--- NOTE | 2021-10-26 12:33 | Pharmacy Report ---
Pharmacy Vanc AUC Short Note - Date of Service October 26, 2021 - Assessment & Plan Assessment 61 year old F receiving vancomycin + ceftriaxone + acyclovir for treatment of possible meningitis. Pertinent microbiologic data includes: gram positive cocci in clusters growing in / BC (staph PCR indicates MSSA). CSF culture pending. Per discussion with provider, will keep patient on vancomycin for now for dual coverage of GPC bacteremia and possible meningitis. If bacterial meningitis is ruled out, would recommend stopping vancomycin + ceftriaxone and starting cefazolin for as this is drug of choice for MSSA bacteremia. Plan Vancomycin * 1250 mg (20.8 mg/kg) IV q12h * This regimen is predicted to achieve target AUC/TRAE of 400-600 mg/L.hr * AUC/TRAE is the preferred PK/PD target for vancomycin * AUC guided dosing is effective and associated with decreased risk of nephrotoxicity compared to traditional trough targets * Vanco random level ordered for 10/27 with AM labs Pharmacy will continue to follow and will adjust dose/frequency as necessary. Thank you.
--- NOTE | 2021-10-26 13:56 | Hospitalist Progress Note ---
Date of Service October 26, 2021 Assessment & Plan (1) Neck pain: Plan: Neck pain and stiffness. CSF WBC of 126, total protein of 70, glucose of 58. Concern for possible meningitis based on history of fever, neck pain and stiffness and CSF findings. CT head was unremarkable Currently on vancomycin and ceftriaxone. Under desciclovir earlier today. Patient's blood cultures growing GPC in all bottles. Continue antibiotics for now. Repeat blood cultures Get 2D echo to rule out infective endocarditis. 2D echo reviewed and negative. Due to report of initial lower back/hip pain which patient reports has resolved, CT pelvis with contrast was. CT cervical spine was also obtained in view of neck stiffness and bacteremia Mild prevertebral edema seen on CT cervical spine and the partially visualized fluid collection seen in left psoas and typical appearance for abscess. Discussed with radiologist. Dedicated contrast imaging of the spine recommended. Further spine imaging with and without contrast ordered. We will follow-up final scans to determine if surgery versus Ortho consult is needed Awaiting infectious disease consult Admission and Anticipated Discharge Date Admission Date: October 25, 2021 Subjective Patient seen and examined. Patient continues to reports neck pain just below the hairline that is now referred, associated with neck stiffness. Denies any fevers at this time no chills. Denies any nausea, vomiting, blurry vision, headache. Patient reported that symptoms started initially with lower back pain around hips laterally. Denied any central back pain. Denied any recent surgery, fall, trauma or instrumentation Denied any dysuria, freq, urgency, cough, chest pain, SOB Physical Exam Constitutional: + well hydrated; no acute distress Eyes: PERRL, conjunctivae normal, anicteric sclerae ENMT: external ear and nose normal, oropharynx normal Neck: No tenderness on palpation of neck However, limited active/passive range of movement Respiratory: normal respiratory effort, lungs clear to auscultation Cardiovascular: RRR, no murmur, no edema Gastrointestinal (Abdomen): normal bowel sounds, soft, nontender, no hepatosplenomegaly Musculoskeletal: No pedal edema Neurologic: PERRL, EOMI, accommodation nl, no face palsy, no dysarthria No SLR sign Psychiatric: A+Ox3, euthymic affect Results & Data Results & Data ([facility]) Vital Signs (Past 12 Hours) Vital Signs Pulse Resp BP Pulse Ox 10/26/21 11:36 82 15 112/68 94 10/26/21 04:00 78 16 127/66 97 10/26/21 02:00 90 18 108/58 L 97 Laboratory Results Abnormal lab results 10/25/21 10/25/21 10/25/21 Range/Units 14:46 17:25 19:48 WBC (4.8-10.8) K/uL RBC (4.2-5.4) M/uL Hgb (12.0-16.0) g/dL Hct (37-47) % Neut # (Auto) (1.4-6.5) K/uL Lymph # (Auto) (1.2-3.4) K/uL [place] # (Auto) (0.11-0.59) K/uL Immature Gran # (Auto) (0.00-0.02) K/uL Sodium (136-145) mmol/L Potassium (3.5-5.1) mmol/L BUN (7-18) mg/dl Creatinine (0.6-1.2) mg/dl Glucose (70-99) mg/dl Procalcitonin 0.69 H (0-0.5) ng/ml Urine Protein (Negative) Urine Ketones (Negative) Urine Blood (Negative) Urine Nitrite (Negative) U Epithel Cells (Auto) (0-5) /lpf CSF WBC 126 H* (0-5) /uL CSF Total Protein 70.5 H (15-45) mg/dl Bld Cult Staph aureus PCR Positive A (Negative) 10/25/21 10/26/21 10/26/21 Range/Units 22:45 05:03 05:03 WBC 24.82 H (4.8-10.8) K/uL RBC 3.34 L (4.2-5.4) M/uL Hgb 9.7 L (12.0-16.0) g/dL Hct 29.3 L (37-47) % Neut # (Auto) 20.84 H (1.4-6.5) K/uL Lymph # (Auto) 0.98 L (1.2-3.4) K/uL [place] # (Auto) 2.78 H (0.11-0.59) K/uL Immature Gran # (Auto) 0.17 H (0.00-0.02) K/uL Sodium 133 L (136-145) mmol/L Potassium 3.3 L (3.5-5.1) mmol/L BUN 6 L (7-18) mg/dl Creatinine 0.47 L (0.6-1.2) mg/dl Glucose 102 H (70-99) mg/dl Procalcitonin (0-0.5) ng/ml Urine Protein Trace H (Negative) Urine Ketones 2+ H (Negative) Urine Blood Trace H (Negative) Urine Nitrite Positive A (Negative) U Epithel Cells (Auto) 20-30 H (0-5) /lpf CSF WBC (0-5) /uL CSF Total Protein (15-45) mg/dl Bld Cult Staph aureus PCR (Negative)
[2021-10-26] MEDS ORDERED: OPTIRAY 320 100ml IV ONE (15:01)
--- NOTE | 2021-10-26 15:23 | CT Scan Report ---
CT OF THE CERVICAL SPINE WITH CONTRAST CLINICAL HISTORY: Neck pain/stiffness. Bacteremia. R/o abscess/infxn COMPARISON STUDY: No previous studies for comparison. TECHNIQUE: Axial images of the cervical spine were obtained following intravenous injection of 94 cc Optiray 320 IV. Sagittal and coronal reconstructions were viewed. Automated exposure control was util ized for the study. A dose lowering technique was utilized adhering to the principles of ALARA. FINDINGS: Visualized portions of the intracranial contents are unremarkable. Small air-fluid level wi thin the right maxillary sinus is noted. There is a mixed attenuation partially calcified abnormality within the right maxillary sinus which measures approximately 2.5 cm. There is no soft tissue gas wi thin the neck. There is no fluid collection to suggest an abscess within the neck. There is probable mild prevertebral edema, a nonspecific finding. Lung apices are clear. Epiglottis is normal. Complica tions within the tonsils are incidentally noted. There is no cervical lymphadenopathy. Major vasculat ure of the neck is patent. No acute fracture within the cervical spine is noted. There is moderate di sc space narrowing at C5-C6. Moderate multilevel facet arthrosis is present. There is no CT evidence for discitis. Central canal and neural foramen are suboptimally assessed by CT but no intracanalicula r abnormalities are identified. IMPRESSION: 1. Mild prevertebral edema, a nonspecific finding. No abscess. No CT evidence for discitis. No intrac analicular abnormality identified although sensitivity significantly diminished given CT technique. I f persistent clinical suspicion for an infectious process, MRI of the cervical spine with and without contrast is recommended. 2. Findings raising the possibility of acute on chronic right maxillary sinusitis. ACT 112: Negative or not required by law. Electronically signed by: Keegan Johnson M.D. 10/26/2021 3:22 PM
--- NOTE | 2021-10-26 15:31 | CT Scan Report ---
CT OF THE PELVIS WITH IV CONTRAST CLINICAL HISTORY: Bacteremia. Low back pain. COMPARISON STUDY: Pelvic MRI dated 09/28/2006. TECHNIQUE: Following the IV administration of 94 cc of Optiray 320, CT scan of the pelvis is performe d from the pelvic inlet to the proximal femora. Images are reviewed in the axial, sagittal, and coron al planes. IV contrast was administered without complication. A dose lowering technique was utilized adhering to the principles of ALARA. CT DOSE: 321.06 mGy.cm FINDINGS: The bladder is normal as visualized. There are large calcified uterine masses most typical in appeara nce for fibroids. No adnexal lesion is seen. There is a small volume of perihepatic and pelvic ascite s. No intraperitoneal free air is seen in the pelvis. There is a fat-containing umbilical hernia. Joann ged portions of the right kidney are normal in appearance. Visualized portions of bowel show no evide nce of obstruction. There is no pelvic sidewall or inguinal lymphadenopathy. The skeletal structures are osteopenic. Mild lumbosacral spondylosis is partially imaged. A fluid collection is partially vis ualized within the left psoas muscle on image #1. This measures 1.4 x 1.6 cm in axial dimension and i s highly concerning for abscess. The iliac vessels are patent. IMPRESSION: 1. There is a partially visualized fluid collection in the left psoas muscle that is typical in appea reza for abscess. Note that psoas muscle abscesses can be associated with discitis/osteomyelitis. Co nsider dedicated contrast-enhanced imaging of the spine for further evaluation. 2. Small volume abdominopelvic ascites. 3. Calcified uterine masses are pathologically indeterminant but typical for fibroids. These were als o seen on the 2005 pelvic MRI. 4. Additional findings as above. ACT 112: Negative or not required by law. Electronically signed by: Elías Begum M.D. 10/26/2021 3:30 PM
[2021-10-26] MEDS ORDERED: GADOBUTROL 65ML VIAL IV ONE (20:51)
[2021-10-27] MEDS: cefTRIAXone SODIUM 2,000 MG in DEXTROSE 5% 50 ML IV SCH ×2 (00:01→10:35)
[2021-10-27] MEDS: MoRPHine SULFATE 4 MG/ML 1 ML CARP\\VIAL IV PRN ×5 (01:44→19:22)
[2021-10-27] MEDS: ACYCLOVIR SOD 600 MG in DEXTROSE 5% 100 ML IV SCH (04:39)
[2021-10-27] MEDS: SODIUM CHLORIDE 0.9% 1000ML 1,000 ML IV SCH ×2 (04:48→16:37)
[2021-10-27] MEDS: ACETAMINOPHEN 325 MG TAB PO PRN ×4 (05:01→19:27)
[2021-10-27] MEDS: ENOXAPARIN INJ 40 MG/0.4 ML SYR SQ SCH (05:02)
[2021-10-27 06:30] LABS: Creatinine Clr Calc Pharmacy 96.9 ml/min; Est GFR (African American) 118.7 ml/min; Est GFR (Non-African American) 102.4 ml/min
[2021-10-27] MEDS ORDERED: VANCOMYCIN TROUGH SCH (07:30)
--- NOTE | 2021-10-27 07:34 | Magnetic Resonance Report ---
THORACIC SPINE MRI WITH AND WITHOUT CONTRAST HISTORY: Abnormal abdomen and pelvis CT. Possible psoas abscess. Assess for infection. Bacteremia TECHNIQUE: Multiplanar multisequence MRI of the thoracic spine was performed both before and after th e intravenous administration of contrast. COMPARISON: None. FINDINGS: Alignment and curvature are intact. No acute fracture or subluxation within the thoracic spine. The t horacic spinal cord is normal in course, caliber, and signal intensity. There is marrow edema at the T12-L1 vertebral bodies with surrounding peripheral enhancing paravertebral fluid collections corresp onding to abscesses. These are best seen on axial image 28 and measures up to 14 mm in thickness. The re is also a small peripheral enhancing epidural fluid collection within the left anterior epidural s pace at the T12-L1 level which measures 15 x 10 x 4 mm. This is consistent with a small epidural absc ess. Therefore, the constellation of findings likely represent a discitis/osteomyelitis at the T12-L1 level. Remaining vertebral bodies within the thoracic spine are intact. No significant central canal narrowing. No disc herniations. IMPRESSION: Multiloculated paravertebral abscesses at the T12-L1 level better appreciated on the same day lumbar spine MRI. There is associated marrow edema at the T12 and L1 vertebral bodies and a small epidural a bscess measuring 10 x 4 mm. Therefore, this likely represents a discitis/osteomyelitis the T12-L1 dis c space level. This finding was called/faxed to the referring physician following dictation given the presence of an epidural abscess. ACT 112: Negative or not required by law. Electronically signed by: Adolfo Reynolds M.D. 10/27/2021 7:32 AM
[2021-10-27] MEDS: VANCOMYCIN HCL 1,250 MG in SODIUM CHLORIDE 0.9% 250 ML IV SCH (08:29)
[2021-10-27] MEDS: FEXOFENADINE HCL 180 MG TAB PO SCH (08:30)
[2021-10-27] MEDS: CEROVITE ADV FORMULA TAB PO SCH (08:30)
[2021-10-27 09:15] LABS: Potassium 3.3 mmol/L (3.5-5.1)
[2021-10-27 09:20] LABS: Hematocrit (blood only) 27.3 % (37-47); Hemoglobin 9.3 g/dL (12.0-16.0); Mean Corpuscular Hemoglobin 30.2 pg (25-34); Mean Corpuscular Hgb Conc 34.1 g/dL (32-36); Mean Corpuscular Volume 88.6 fL (80-100); Platelet Count 467 K/uL (130-400); RDW Coefficient of Variation 14.3 % (11.5-14.5); RDW Standard Deviation 46.5 fL (36.4-46.3); Red Blood Count 3.08 M/uL (4.2-5.4)
--- NOTE | 2021-10-27 09:45 | Magnetic Resonance Report ---
MRI OF THE LUMBAR SPINE COMBO CLINICAL HISTORY: Psoas abscess. Bacteremia. COMPARISON STUDY: Pelvic CT performed the same day 10/26/2021. TECHNIQUE: MRI of the lumbar spine is performed using various T1 and T2 sequences in the axial and sa gittal planes. Contrast-enhanced sequences are acquired following the IV administration of 6 cc of Ga davist. FINDINGS: Lumbar spine: Vertebral body height and alignment are maintained throughout the lumbar spine. There i s marrow edema seen throughout the bodies of T12 and L1 with associated abnormal postcontrast enhance ment. No destructive endplate change is identified. The transverse and spinous processes appear intac t. There is no evidence of spondylolysis. No lytic or blastic osseous lesion is suggested. A small he mangioma is noted in the body of L5. Intervertebral discs: There is degenerative disc desiccation seen throughout the lumbar spine. There is mild loss of height at T12-L1. No fluid is shown within the T12-L1 disc space. L1-L2: Unremarkable. L2-L3: Unremarkable. L3-L4: There is minimal posterior disc bulge. This abuts the transiting nerve roots. There is no sign ificant acquired compromise of the central canal. There is mild left-sided subarticular stenosis. The neural foramina are patent. L4-L5: There is broad-based posterior disc bulge. This abuts the transiting nerve roots. In conjuncti on with hypertrophy of the ligamentum flavum there is mild central canal stenosis at this level with a minimum AP diameter of 7 mm. There is bilateral subarticular stenosis. In conjunction with facet ar thropathy there is minimal bilateral neural foraminal narrowing. There are bilateral facet joint effu sions. L5-S1: The central canal and neural foramina are clear. Mild facet arthropathy is of no consequence. There are bilateral facet joint effusions. Spinal cord and central canal: Imaged portions of the spinal cord are normal in morphology and signal intensity. The conus medullaris terminates at the level of L1. The nerve roots of the cauda equina a re normal in morphology, with no abnormal postcontrast enhancement identified. A small epidural fluid collection is suggested posteriorly at the T12-L1 level anteriorly on the left. This is only seen on the sagittal sequence and measures up to 15 mm in craniocaudal length. This is highly concerning for epidural abscess given the adjacent vertebral body edema. Sacrum: The visualized sacrum is normal in morphology and signal intensity. Soft tissues: There is a multiloculated fluid collection within the left psoas muscle, best seen on a xial image #5. This measures approximately 6.5 x 3 x 2 cm in maximum dimension. There are paraspinous soft tissue collections at the T12-L1 level. These are only seen on the sagittal sequences. An anter ior fluid collection at this level measures at least 5 cm in craniocaudal length as seen on sagittal image #5. A collection in the right paravertebral soft tissues at T12-L1 measures at least 2.7 cm. Th ere is free fluid in the pelvis. Uterine masses are partially visualized and likely represent fibroid s. IMPRESSION: 1. There is significant marrow edema and abnormal postcontrast enhancement within the T12 and L1 vert ebral bodies highly suspicious for discitis/osteomyelitis. 2. A small epidural collection at the T12-L1 level is highly suspicious for epidural abscess. 3. There is a large multiloculated abscess within the left psoas muscle as above. 4. There are also paravertebral abscesses at T12-L1. Dictated: 10/27/2021 8:44 AM Transcribed: 10/27/2021 9:19 AM [place] [id number] [facility] Electronically signed by: Elías Begum M.D. 10/27/2021 9:44 AM
[2021-10-27] MEDS ORDERED: POTASSIUM CHLORIDE CRTAB 20 MEQ TABCR PO STA (10:53)
[2021-10-27] MEDS ORDERED: GADOBUTROL 65ML VIAL IV ONE (13:07)
[2021-10-27] MEDS: NAFCILLIN SODIUM 2,000 MG in DEXTROSE 5% 100 ML IV SCH ×2 (13:34→18:14)
--- NOTE | 2021-10-27 14:53 | Magnetic Resonance Report ---
MRI OF THE CERVICAL SPINE WITH AND WITHOUT CONTRAST CLINICAL HISTORY: prevertebral edema in CT, neck tenderness COMPARISON: CT of the cervical spine October 18, 2021. TECHNIQUE: Utilizing a 1.5 Dorina magnet and dedicated coil, multiplanar, multiecho imaging of the ce rvical spine was performed before and after intravenous administration of 6 of Gadavist. FINDINGS: Alignment of the cervical spine is anatomic. There is mildly diminished T1 marrow signal within visua lized portions of the spine. This is a nonspecific finding. Slight loss of height of the superior end plate of T3 is chronic. No acute cervical spine fracture is noted. Cervical cord signal and caliber a re normal. There is no intracanalicular mass or fluid collection. Of note, there is moderate preverte bral edema. This is most prominent at the C1-C2 level where phlegmon may be present. There may be tin y prevertebral abscesses that measure up to 7 mm at the C1-C2 level. Extensive degenerative changes a t the C1-C2 articulation are noted. A superimposed infectious process may be present. There is no chente dence for discitis within the cervical spine. Note is made of edema and enhancement within the poste rior upper paraspinal musculature of the cervical spine. No associated abscess is identified. There i s slight enhancement of the C2 vertebral body. No definite marrow edema is noted on the STIR sequence . Visualized portions of the intracranial contents are unremarkable. There is mild anterior epidural enhancement at C2-C3 level. No associated fluid collection is present. Moderate multilevel degenerati ve changes within the cervical spine are present. IMPRESSION: 1. Moderate prevertebral edema within the cervical spine, most pronounced at the C1-C2 level. This in volves the longus colli muscles. There is associated phlegmon and possible tiny prevertebral abscesse s that measure up to 7 mm. No drainable fluid collection. No epidural abscess. Mild epidural enhancem ent may be infectious. 2. Edema and enhancement of the posterior upper cervical paraspinal musculature which suggests an inf ectious myositis. 3. Degenerative changes at the C1-C2 articulation. A superimposed infectious process at this level ca nnot be excluded. 4. Mildly diminished T1 signal within visualized portions of the spine. This could reflect a marrow r eplacement or marrow proliferative process. ACT 112: Negative or not required by law. Electronically signed by: Keegan Johnson M.D. 10/27/2021 2:51 PM
--- NOTE | 2021-10-27 15:11 | Orthopedic Consultation ---
Date of Consultation October 27, 2021 Assessment & Plan (1) Iliopsoas abscess: Assessment thoracolumbar epidural abscess with bilateral iliopsoas abscesses. Plan had a long session with this patient her and family regarding her imaging and clinical presentation. At this time I see no indication for urgent decompression of the epidural abscess however have a considerable concern regarding the scale and scope of her psoas abscess. This may very well may need debrided or at least drained. This is outside of my area of expertise and we will most likely consider transfer to tertiary care center. Patient understands agrees. History of Present Illness Reason for Consultation: Thoracic epidural abscess Attending Physician: Owen Cody MD History of Present Illness This is a very pleasant 61-year-old female that presents with a history of left hip pain back pain now headaches and evidence of infection. Work-up does demonstrate evidence of meningitis and staph aureus on blood cultures. During our discussion today she states her back pain is controlled. She denies any numbness or tingling to lower extremities. Denies any strength deficits. She does describe nuchal rigidity. Allergies Allergy/AdvReac Type Severity Reaction Status Date / Time No Known Allergies Allergy Verified 10/25/21 16:49 Home Medications Medication Instructions Recorded Confirmed Type acetaminophen 650 mg 1,300 mg PO Q12H PRN 10/25/21 10/25/21 History tablet,extended release fexofenadine 180 mg tablet 180 mg PO DAILY 10/25/21 10/25/21 History nskervxcfpuz-urlyrbof-qupoji 1 tab PO DAILY 10/25/21 10/25/21 History tablet (Multivitamin 50 Plus) naproxen sodium 220 mg tablet 440 mg PO BID PRN 10/25/21 10/25/21 History (Aleve) omega-3 fatty acids-fish oil 684 1 cap PO DAILY 10/25/21 10/25/21 History mg-1,200 mg capsule,delayed release vit A 7,160 unit-vit C 113 mg-vit 1 tab PO DAILY 10/25/21 10/25/21 History E-zinc hu-bfmajt-kgyrsw 1 mg tablet ([facility]) Patient History Social History Smoking Status: Never smoker Second Hand Exposure: No; Do You Dip or Chew Tobacco: No; Tobacco Cessation Education Requested by Patient: No Hx Alcohol Use: Yes Alcohol type: wine Hx Substance Use: No Preferred Language: Albanian Personal Trainer Required: No Beliefs That Will Affect Care: None Current Living Situation: Spouse Other Information That Helps Us Care for You: No Feels Safe at Home: Yes Safety Concerns: Feels Safe At This Time Assistive Devices: Glasses Physical Exam Physical Exam: On exam she exhibits plus out of 5 bilateral plantar flexion dorsiflexion quadriceps hip flexors. Negative logroll. Sensory symmetric and intact. No evidence of clonus. She does have good strength testing the upper extremities. Results & Data ([facility]) Vital Signs (Past 12 Hours) Vital Signs Temp Pulse Resp BP Pulse Ox 10/27/21 07:15 37.1 C 84 16 111/72 93
[2021-10-27] MEDS ORDERED: HEPARIN SOD 5,000 UNIT/0.5 ML VIAL SQ SCH (18:00)
--- NOTE | 2021-10-27 19:03 | Discharge Summary ---
Date of Service October 27, 2021 Admission HPI Per Admitting Provider DATE OF ADMISSION: 10/25/2021. CHIEF COMPLAINT: Severe neck pain and neck stiffness. HISTORY OF PRESENT ILLNESS: A 61-year-old female with past medical history significant for allergic rhinitis, presents with severe neck pain, neck stiffness going on for a week. A few days back, she also had a high temperature of 103 degrees. She is COVID vaccinated with a booster also given and she came to the ER today and her white count was 25,[address] of the head was unremarkable. Lumbar puncture done in the ER showed CSF WBC 126, CSF total protein 70. PCR for Cryptococcus neoformans, CMV enterovirus, E. coli, H influenza, HSV 1 and 2, HHV-6, Listeria, Neisseria. Strep pneumoniae and Strep agalactiae are not detected. Currently, the patient has headache and also back pain and neck stiffness and neck pain. Was nauseous. No chest pain, no shortness of breath. Has some runny nose from her sinuses and cough from her sinuses. Appetite is down. No shortness of breath. Normal bowel and bladder movements. Urine is somewhat dark. No blood in the stools or black stools. Hemodynamically stable. ALLERGIES: No known drug allergies. PAST MEDICAL HISTORY: As mentioned above. PAST SURGICAL HISTORY: Colonoscopy, dental surgery. MEDICATIONS: The patient is on Tylenol Arthritis p.r.n., Es 180 mg p.o. daily, multivitamins 1 tablet p.o. daily, naproxen 440 mg p.o. b.i.d. p.r.n., fish oil 1 capsule p.o. daily. FAMILY HISTORY: Significant for mother has arthritis, eye problem, hypertension; daughter has thyroid cancer; father has diabetes; brother has eye problems; father has eye problems; mother has eye problems. SOCIAL HISTORY: . No smoking. Alcohol about four glasses of wine per week. No drug use. REVIEW OF SYSTEMS: As per HPI. Rest of the review of systems is negative. Admission Exam Per Admitting Provider GENERAL: The patient is alert and oriented, not in acute distress. VITAL SIGNS: Temperature 36.9, pulse 102, respiratory rate 20, blood pressure 133/82, oxygen 94% on room air. HEENT: No pallor. No icterus. Oral mucosa moist. NECK: No neck masses seen. Neck tenderness present. Neck stiffness present. CARDIOVASCULAR: S1 and S2 heard. Regular rate and rhythm. No murmur, no gallop. RESPIRATORY: Normal AP diameter. No accessory muscle use. No wheezing, no crackles. ABDOMEN: Soft, bowel sounds present, nontender, no distention. CENTRAL NERVOUS SYSTEM: Cranial nerves II-XII grossly intact, nonfocal. EXTREMITIES: No edema, no erythema. Principal Diagnosis Thoracolumbar epidural abscess with bilateral iliopsoas abscess Meningitis Bacteremia likely MSSA Discharge Exam GENERAL: Alert and oriented x3. NAD, on RA. HEENT: No pallor, no icterus. Pupils equal, round and reactive to light. Oral mucosa moist. NECK: No JVD, no neck masses. Cervical spine stiffness noted. Cervical spine tenderness and mild lumbar spine tenderness noted HEART: S1 and S2 heard. Regular rate and rhythm. No murmur, no gallop. RESPIRATORY SYSTEM: Normal AP diameter. No accessory muscle use. No wheezing, no crackles. ABDOMEN: Soft, bowel sounds present, nontender, no distention. CENTRAL NERVOUS SYSTEM: No facial droop. Speech is clear. Obeys simple commands. Moves extremities. EXTREMITIES: No edema, no erythema seen. Discharge Data Allergies Allergy/AdvReac Type Severity Reaction Status Date / Time No Known Allergies Allergy Verified 10/25/21 16:49 Consultations 10/25/21 21:35 ED Decision to Admit Stat 10/26/21 08:00 Consult Infectious Diseases Routine 10/27/21 08:09 Consult Orthopedic Surgery Routine 10/27/21 10:50 Consult Infectious Diseases Stat 10/27/21 15:31 Burn CD for patient Routine Ordered Studies 10/25/21 17:03 CT head/brain wo con Stat 10/26/21 13:54 CT cervical spine w con Urgent 10/26/21 14:07 CT pelvis w/IV con only Urgent 10/26/21 17:05 MR lumbar spine wo/w con Urgent MR thoracic spine wo/w con Urgent 10/27/21 10:54 MR cervical spine wo/w con Routine Hospital Course (1) Iliopsoas abscess: (2) Neck pain: 61-year-old female with past medical history significant for allergic rhinitis, presented 10/27/21 with severe neck pain, neck stiffness going on for a week with temperature recorded up to 103 degrees at home. She is boosted against Covid. At presentation her WBC was elevated at 25K and CT head was negative. Her Covid test at presentation was negative. Lumbar puncture done in the ER showed elevated WBC with elevated total protein, PCR in CSF were negative. She was started on ceftriaxone, vancomycin and acyclovir for meningitis. Acyclovir stopped 10/27 after PCR in CSF noted to be negative. Her rest of the antibiotics were changed to nafcillin after discussion with infectious disease over [place] over the phone [also her MRSA PCR was negative but staph aureus PCR was positive in blood]. She also found to have staph species in her blood on admitting blood culture, C/S pending at the point of transfer to [place]. Admitting echo negative for any valvular lesions consistent with endocarditis. EF 60 to 65%. Normal LV systolic function. She underwent CT head/cervical spine CT/pelvis CT/lumbar spine MRI/thoracic spine MRI/cervical spine MRI which showed thoracolumbar epidural abscess with bilateral iliopsoas abscess. Once he is transferred, she will need CT of the chest and abdomen and pelvis with IV and oral contrast as appropriate to try to figure out the source of her bacteremia. Currently source unidentified. Patient does complain of neck stiffness and mild low back pain but no shortness of breath/no acute changes in her bowel or bladder habits. She reports urine being somewhat dark. She is hemodynamically stable. Patient reports somewhat improvement in her neck pain and her WBC has trended down slightly. Multiple communications were made today for her care and transfer. Communicated with her chxbirxv-kg-dxm Dr. Durham at [facility] several ti mes during the day for update on patient/preference for transfer hospital. Communicated with infectious disease liasion office for [place] infectious disease consulted for stat ID consult. Communicated with ID Dr. Marx regarding patient status, and changed antibiotic to nafcillin. Communicated with [place] transfer line for transfer to tertiary care center for iliopsoas abscess and other associated acute problems. Communicated with orthospine Dr. Herzog for further recommendation on her MRI findings who recommended transfer due to concerns of iliopsoas abscess. Communicated with RN/administration several times during the day for updates/transfer. Patient has been accepted at [facility] by Dr. Ayon and has already gotten bed, awaiting transportation. Patient has been discharged. She had been on following inpatient medication while in hospital. Current Inpatient Medications Acetaminophen (Acetaminophen 325 Mg Tab) 650 mg PO Q4H PRN PRN Reason: Pain or Fever Stop: 11/25/21 02:16 Last Admin: 10/27/21 14:42 Dose: 650 mg Documented by: Fexofenadine HCl (Fexofenadine Hcl 180 Mg Tab) 180 mg PO DAILY [facility] Stop: 11/25/21 08:59 Last Admin: 10/27/21 08:30 Dose: 180 mg Documented by: Heparin Sodium (Porcine) (Heparin Sod 5,000 Unit/0.5 Ml Vial) 5,000 units SQ Q12H [facility] Stop: 11/26/21 17:59 Last Admin: 10/27/21 18:16 Dose: 5,000 units Documented by: Sodium Chloride (Nss 1000ml) 1,000 mls @ 80 mls/hr IV .[id number] [facility] Stop: 11/25/21 02:16 Last Infusion: 10/27/21 18:28 Dose: 0 mls/hr Documented by: Nafcillin Sodium 2,000 mg/ (Dextrose) 108 mls @ 100 mls/hr IV Q4H [facility]; Protocol Stop: 11/06/21 13:59 Last Admin: 10/27/21 18:14 Dose: 100 mls/hr Documented by: Morphine Sulfate (Morphine Sulfate 4 Mg/Ml 1 Ml Carp\Vial) 3 mg IV Q3H PRN PRN Reason: Pain Stop: 11/08/21 23:24 Last Admin: 10/27/21 14:17 Dose: 3 mg Documented by: Multivitamins/Minerals (Cerovite Adv Formula Tab) 1 tab PO DAILY [facility] Stop: 11/25/21 08:59 Last Admin: 10/27/21 08:30 Dose: 1 tab Documented by: Nitroglycerin (Nitroglycerin Sl 0.4 Mg/Tab Tab) 0.4 mg SL UD PRN PRN Reason: Chest Pain Stop: 11/25/21 02:16 Ondansetron HCl (Ondansetron Inj 2 Mg/Ml 2 Ml Vial) 4 mg IV Q6H PRN PRN Reason: Nausea Stop: 11/25/21 02:16 Total Time Total Time Spent Total Time Spent (In Minutes): 120 Discharge Plan Discharge Items Patient Disposition: Transfer Acute Care Hospital Reason For Visit: NECK PAIN Discharge Diagnosis: Thoracolumbar epidural abscess with bilateral iliopsoas abscess Meningitis Bacteremia likely MSSA Activity: Per Instructions section Activity Comment: as per tertiary care recommendation. Non-emergency contact: Primary Care Provider Call non-emergency contact if: you have any medication questions and your temperature is above 101 Follow-up/Referrals: Elroy Olivo DO [Primary Care Provider] - Diet: Heart Healthy Addtl Attending Provider Instructions: Patient is being transferred to [facility]. While in hospital she underwent CT head, cervical spine CT, pelvis CT, lumbar spine MRI, thoracic spine MRI, cervical spine MRI. Source of bacteremia undetermined at this point, she will need CT of the chest and abdomen pelvis with IV and oral [where applicable] contrast once she is in the [facility] center to look out for source of infection. Her inpatient medications are: Current Inpatient Medications Acetaminophen (Acetaminophen 325 Mg Tab) 650 mg PO Q4H PRN PRN Reason: Pain or Fever Stop: 11/25/21 02:16 Last Admin: 10/27/21 14:42 Dose: 650 mg Documented by: Fexofenadine HCl (Fexofenadine Hcl 180 Mg Tab) 180 mg PO DAILY [facility] Stop: 11/25/21 08:59 Last Admin: 10/27/21 08:30 Dose: 180 mg Documented by: Heparin Sodium (Porcine) (Heparin Sod 5,000 Unit/0.5 Ml Vial) 5,000 units SQ Q12H [facility] Stop: 11/26/21 17:59 Last Admin: 10/27/21 18:16 Dose: 5,000 units Documented by: Sodium Chloride (Nss 1000ml) 1,000 mls @ 80 mls/hr IV .[id number] [facility] Stop: 11/25/21 02:16 Last Infusion: 10/27/21 18:28 Dose: 0 mls/hr Documented by: Nafcillin Sodium 2,000 mg/ (Dextrose) 108 mls @ 100 mls/hr IV Q4H [facility]; Protocol Stop: 11/06/21 13:59 Last Admin: 10/27/21 18:14 Dose: 100 mls/hr Documented by: Morphine Sulfate (Morphine Sulfate 4 Mg/Ml 1 Ml Carp\Vial) 3 mg IV Q3H PRN PRN Reason: Pain Stop: 11/08/21 23:24 Last Admin: 10/27/21 14:17 Dose: 3 mg Documented by: Multivitamins/Minerals (Cerovite Adv Formula Tab) 1 tab PO DAILY [facility] Stop: 11/25/21 08:59 Last Admin: 10/27/21 08:30 Dose: 1 tab Documented by: Nitroglycerin (Nitroglycerin Sl 0.4 Mg/Tab Tab) 0.4 mg SL UD PRN PRN Reason: Chest Pain Stop: 11/25/21 02:16 Ondansetron HCl (Ondansetron Inj 2 Mg/Ml 2 Ml Vial) 4 mg IV Q6H PRN PRN Reason: Nausea Stop: 11/25/21 02:16 Pending Studies at Discharge: Yes (Admitting and follow-up blood culture results) Stand-Alone Forms: [facility] Skilled Items Patient informed of condition?: Yes DNR: No Discharge Level of Care: Other Communicable Disease: No Discharge Prognosis: Stable Lines: Peripheral IV Urinary Catheter: No Medications and DC Order Prescriptions: Continued fexofenadine [Es] 180 mg Tablet 180 mg PO DAILY RF: 0 acetaminophen [Tylenol Arthritis] 650 mg Tablet Extended Release 1,300 mg PO Q12H PRN (Reason: Pain) RF: 0 naproxen sodium [Aleve] 220 mg Tablet 440 mg PO BID PRN (Reason: Pain) RF: 0 Multivitamin 50 Plus Tablet 1 tab PO DAILY RF: 0 [place] 3 Fish Oil 684-1,200 mg Capsule,Delayed Release(Dr/Ec) 1 cap PO DAILY RF: 0 [facility] 7,160 unit- 113 mg-1 mg Tablet 1 tab PO DAILY RF: 0 Discharge Orders: Discharge Order (Routine); Ordered 10/27/21 Ordered By: Owen Cody Admission Data Admit Date/Time: 10/25/21 23:02 Attending Provider: Owen Cody Admit Provider: Kenny Narayanan Primary Care Provider: Elroy Olivo Other Providers: Kenny Narayanan ; Hansel Huerta ; uJan Walden ; Clint Saldivar I. ; Silvino Marx II ; Natalie Faith ; Rl Chavarria ; Marcos Santos ; Julia Cano ; Immanuel Herzog
== END 2021-10-27 19:15 | disposition short-term general hospital (02) | DRG 94 ==
LOC: ED 12:27 → EDINP 23:02 → SUATTDRO 23:02 → 2N 10-26 05:14

== ENCOUNTER 2022-03-16 14:19 | Inpatient (IN) ==
[2022-03-16 15:09] LABS: Basophils # (auto) 0.02 K/uL (0-0.2); Basophils % (auto) 0.2 %; Eosinophils # (auto) 0.02 K/uL (0-0.5); Eosinophils % (auto) 0.2 %; Hematocrit (blood only) 34.5 % (37-47); Hemoglobin 11.2 g/dL (12.0-16.0); Immature Granulocytes # (auto) 0.04 K/uL (0.00-0.02); Immature Granulocytes % (auto) 0.3 %; Lymphocytes # (auto) 1.26 K/uL (1.2-3.4); Lymphocytes % (auto) 9.8 %; Mean Corpuscular Hemoglobin 27.1 pg (25-34); Mean Corpuscular Hgb Conc 32.5 g/dL (32-36); Mean Corpuscular Volume 83.3 fL (80-100); Mean Platelet Volume 9.5 fL (7.4-10.4); Monocytes # (auto) 0.89 K/uL (0.11-0.59); Monocytes % (auto) 6.9 %; Neutrophils # (auto) 10.63 K/uL (1.4-6.5); Neutrophils % (auto) 82.6 %; Platelet Count 239 K/uL (130-400); RDW Coefficient of Variation 14.7 % (11.5-14.5); RDW Standard Deviation 44.5 fL (36.4-46.3); Red Blood Count 4.14 M/uL (4.2-5.4); White Blood Count 12.86 K/uL (4.8-10.8)
[2022-03-16 15:25] LABS: Albumin Globulin Ratio 1.3 (0.9-2); Albumin Level 4.3 gm/dl (3.4-5.0); BUN Creatinine Ratio 22.6 (10-20); Bilirubin,Total 0.8 mg/dl (0.2-1.0); Calcium 9.7 mg/dl (8.5-10.1); Creatinine Clr Calc Pharmacy 80.1 ml/min; Est GFR (African American) 111.2 ml/min; Globulin 3.4 gm/dl (2.5-4.0); Potassium 3.7 mmol/L (3.5-5.1); Total Protein 7.7 gm/dl (6.0-8.3)
--- NOTE | 2022-03-16 16:10 | Electrocardiogram Report ---
Test Reason : Blood Pressure : / mmHG Vent. Rate : 106 BPM Atrial Rate : 106 BPM P-R Int : 128 ms QRS Dur : 084 ms QT Int : 318 ms P-R-T Axes : 048 053 014 degrees QTc Int : 422 ms Sinus tachycardia Possible Left atrial enlargement Borderline ECG When compared with ECG of 02-JUL-2013 06:59, Vent. rate has increased BY 41 BPM Confirmed by Osei Kumar ([id number]) on 03/16/2022 4:10:19 PM Referred By: Confirmed By:Logan Kumar
[2022-03-16] MEDS ORDERED: LORazepam 2 MG/1 ML VIAL IV STA (16:41)
--- NOTE | 2022-03-16 16:46 | XRay Report ---
SINGLE VIEW CHEST CLINICAL HISTORY: Dyspnea FINDINGS: An AP, portable, upright chest radiograph is compared to study dated 06/30/2013. A left PICC line is in place. The tip of the catheter projects over the cavoatrial junction. The cardiomediastina l silhouette is unremarkable. The lungs and pleural spaces are clear. No pneumothorax is seen. The sk eletal structures are osteopenic. The bony thorax is grossly intact. IMPRESSION: No active disease in the chest. ACT 112: Negative or not required by law. Electronically signed by: Elías Begum M.D. 03/16/2022 4:44 PM
[2022-03-16] MEDS ORDERED: VANCOMYCIN HCL 1,250 MG in SODIUM CHLORIDE 0.9% 500 ML IV ONE (17:34)
[2022-03-16] MEDS ORDERED: CEFEPIME 2,000 MG/20 ML VIAL IV STA (17:34)
[2022-03-16] MEDS ORDERED: VANCOMYCIN CONSULT ACTIVE PRN (17:34)
--- NOTE | 2022-03-16 18:28 | History & Physical Report ---
Date of Service March 16, 2022 Assessment & Plan (1) Fever: Plan: History of recurrent MSSA bacteremia infection, thoracolumbar epidural abscess with bilateral iliopsoas abscess Presents with chills, dizziness Noted to have fever, sinus tachycardia, leukocytosis. Possible sepsis Per ER physician who discussed with infectious disease, recommend broadening antibiotics with Vanco and cefepime. Continue Vanco and cefepime for now. Follow-up blood cultures Follow-up repeat imaging. MRI of the spine already ordered. Infectious disease consult Tylenol prn fever and pain Dispo - PCU Code status - Full code History of Present Illness Chief Complaint: Chills and diarrhea Primary Care Provider: Elroy Olivo DO 52-year-old woman with history of allergic rhinitis, hospitalization in September 2021 for thoracolumbar epidural abscess with bilateral iliopsoas abscess, MSSA bacteremia who presented today with chills. Patient reported that earlier today, she started having some dizziness. Shortly after started having chills but did not have fevers at home. Reported some diarrhea initially described as loose stool, nonbloody and then later on became more frequent small stools. Denies any abdominal pain, nausea, vomiting Reports some headache right now which she reports is likely from laying in ER. Denies any sore throat, congestion, cough, chest pain, shortness of breath, palpitation Reports chronic rhinorrhea from her allergic rhinitis. Denies any dysuria, frequency, urgency, hematuria Reports only low back dull pain occasionally usually with activity sometimes but not constant Review of ID outpatient chart, Patient had been on IV Ancef being managed by outpatient infectious disease for MSSA bacteremia, thoracolumbar epidural abscess with bilateral iliopsoas abscess [place] [facility] Readmitted in 11/2021 with fever thought to be due to CDI and was treated with po vanco and imaging was stable at the time. Completed 8 weeks ancef. Was admitted again in 01/2022 and grew MSSA again was evaluated by Ortho at that time but no surgical intervention recommended. Was started on Ancef again with expected end date being 04/10/22 for a total of 10 weeks prior to this presentation On presentation to the ER, was noted to be tachycardic had a temperature of 38.1 lab work notable for WBC of 12,000. ER doctor spoke with infectious disease who recommend changing antibiotics to Vanco and cefepime and getting repeat scans. Reports family hx of Hypertension and eye problems in mother, Diabetes in father who is . Denied smoking, illicit drug use. Occasional alcohol use Denied any allergies Allergies Allergy/AdvReac Type Severity Reaction Status Date / Time No Known Allergies Allergy Verified 03/16/22 17:34 Home Medications Medication Instructions Recorded Confirmed Type acetaminophen 650 mg 1,300 mg PO Q12H PRN 10/25/21 03/16/22 History tablet,extended release kfcpnzlfzaqy-lpbtknee-yxatjd 1 tab PO DAILY 10/25/21 03/16/22 History tablet (Multivitamin 50 Plus) omega-3 fatty acids-fish oil 684 1 cap PO DAILY 10/25/21 03/16/22 History mg-1,200 mg capsule,delayed release vit A 7,160 unit-vit C 113 mg-vit 1 tab PO DAILY 10/25/21 03/16/22 History E-zinc az-ezyfvi-yffwpn 1 mg tablet ([facility]) cefazolin 1 gram intravenous 2 g IV Q8 03/16/22 03/16/22 History piggyback cyclobenzaprine 5 mg tablet 5 mg PO BID PRN 03/16/22 03/16/22 History loratadine 10 mg tablet (Claritin) 10 mg PO DAILY 03/16/22 03/16/22 History oxycodone-acetaminophen 5 mg-325 1 tab PO Q4H PRN 03/16/22 03/16/22 History mg tablet Past Med/Surg History Social History Smoking Status: Never smoker Second Hand Exposure: No; Hx Alcohol Use: Yes Alcohol type: wine Hx Substance Use: No Preferred Language: South Sudanese Claim Inspector Required: No Beliefs That Will Affect Care: None Current Living Situation: Spouse Feels Safe at Home: Yes Assistive Devices: None Review of Systems Review of Systems: All systems reviewed & are unremarkable except as noted in HPI & below Physical Exam Constitutional: + well hydrated; no acute distress Eyes: PERRL, conjunctivae normal, anicteric sclerae ENMT: external ear and nose normal, oropharynx normal Respiratory: normal respiratory effort, lungs clear to auscultation Cardiovascular: Rate/Rhythm: regular rate and regular rhythm S1 S2 Gastrointestinal (Abdomen): normal bowel sounds, soft, nontender, no hepatosplenomegaly Musculoskeletal: no cyanosis or clubbing, extremities motor strength 5/5 No point tenderness of spine No pedal edema Neurologic: PERRL, EOMI, accommodation nl, no face palsy, no dysarthria Psychiatric: A+Ox3, euthymic affect Results & Data Results & Data ([facility]) Vital Signs (Past 12 Hours) Vital Signs Temp Pulse Resp BP Pulse Ox 03/16/22 16:05 95 03/16/22 14:20 38.1 C H 122 H 18 123/81 96 Laboratory Results Abnormal lab results 03/16/22 03/16/22 Range/Units 14:40 14:40 WBC 12.86 H (4.8-10.8) K/uL RBC 4.14 L (4.2-5.4) M/uL Hgb 11.2 L (12.0-16.0) g/dL Hct 34.5 L (37-47) % RDW Coeff of Lynda 14.7 H (11.5-14.5) % Neut # (Auto) 10.63 H (1.4-6.5) K/uL [place] # (Auto) 0.89 H (0.11-0.59) K/uL Immature Gran # (Auto) 0.04 H (0.00-0.02) K/uL Sodium 135 L (136-145) mmol/L BUN/Creatinine Ratio 22.6 H (10-20) ALT 4 L (7-52) U/L Code Status & VTE Plan VTE Prophylaxis Plan VTE Prophylaxis will be ordered: Yes
[2022-03-16] MEDS ORDERED: ACETAMINOPHEN 325 MG TAB PO PRN (18:29)
[2022-03-16 19:08] LABS: Appearance Urine Clear (Clear); Bilirubin Urine Negative (Negative); Blood Urine Negative (Negative); Color Urine Yellow; Glucose Urine UA Negative (Negative); Ketones Urine Negative (Negative); Leukocyte Esterase Urine Negative (Negative); Nitrite Urine Negative (Negative); Protein Urine Negative (Negative); Specific Gravity Urine 1.005 (1.000-1.030); Urobilinogen Urine Negative (Negative); pH Urine 6.5 (4.5-7.5)
--- NOTE | 2022-03-16 19:24 | Emergency Department Note ---
History of Present Illness General Chief complaint: Illness Stated complaint: DIARRHEA, CHILLS, LIGHTHEADED Time Seen by Provider: 03/16/22 16:08 History of Present Illness 62-year-old female presents to the ED with a chief complaint of a fever. 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 She is followed by Dr. Marcos Chambers at [facility]. The patient developed a little diarrhea today x2, chills and fever and was sent here for further evaluation. She developed the symptoms despite being on IV Ancef for MSSA that was cultured from her blood and psoas abscess. She states that her original symptoms started back in September and she was on IV antibiotics until December. She then had a recurrence of her symptoms and on January 30 was restarted on the IV Ancef. The patient does report a history of C. difficile while on antibiotics. She had been on oral vancomycin and stopped that yesterday. She states that her diarrhea this morning did not seem like the C. difficile. She has a mild runny nose and a random cough but otherwise no significant symptoms. The patient states that she feels that those symptoms are likely related to allergies. She denies any urinary symptoms. No rashes. No additional complaints. Home Medications Medication Instructions Recorded Confirmed Type acetaminophen 650 mg 1,300 mg PO Q12H PRN 10/25/21 03/16/22 History tablet,extended release opvwjyagasbb-vuxutktk-jabapl 1 tab PO DAILY 10/25/21 03/16/22 History tablet (Multivitamin 50 Plus) omega-3 fatty acids-fish oil 684 1 cap PO DAILY 10/25/21 03/16/22 History mg-1,200 mg capsule,delayed release vit A 7,160 unit-vit C 113 mg-vit 1 tab PO DAILY 10/25/21 03/16/22 History E-zinc rk-ocscwl-rbsoag 1 mg tablet ([facility]) cefazolin 1 gram intravenous 2 g IV Q8 03/16/22 03/16/22 History piggyback cyclobenzaprine 5 mg tablet 5 mg PO BID PRN 03/16/22 03/16/22 History loratadine 10 mg tablet (Claritin) 10 mg PO DAILY 03/16/22 03/16/22 History oxycodone-acetaminophen 5 mg-325 1 tab PO Q4H PRN 03/16/22 03/16/22 History mg tablet Allergies Allergy/AdvReac Type Severity Reaction Status Date / Time No Known Allergies Allergy Verified 03/16/22 17:34 Past Med/Surg History Social History Smoking Status: Never smoker Second Hand Exposure: No; Hx Alcohol Use: Yes Alcohol type: wine Hx Substance Use: No Preferred Language: Cuban 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 Beliefs That Will Affect Care: None Current Living Situation: Spouse Feels Safe at Home: Yes Assistive Devices: None Review of Systems A total of 10 systems reviewed and were otherwise negative Physical Exam Vital Signs Vital Signs - 24 hr 03/16/22 14:20 03/16/22 16:05 03/16/22 16:11 Temperature 38.1 C H Temperature Source Temporal Artery Scan Pulse Rate 122 H 97 H Pulse Rate from SpO2 Sensor 99 H Respiratory Rate 18 24 Blood Pressure 123/81 Blood Pressure Mean 95 Blood Pressure Position Sitting Pulse Oximetry 96 95 95 Oxygen Delivery Method Room Air Room Air Sepsis Recent Fever Within 48 Hours Yes Sepsis New/Unexplained Change in Mental Status No Sepsis Action Taken by Nursing No Action Required 03/16/22 16:20 03/16/22 16:30 03/16/22 16:40 Temperature Temperature Source Pulse Rate 106 H 99 H 95 H Pulse Rate from SpO2 Sensor 107 H 97 H 97 H Respiratory Rate 21 15 20 Blood Pressure 89/75 L Blood Pressure Mean 79 Blood Pressure Position Pulse Oximetry 97 96 96 Oxygen Delivery Method Sepsis Recent Fever Within 48 Hours Sepsis New/Unexplained Change in Mental Status Sepsis Action Taken by Nursing 03/16/22 16:50 03/16/22 17:00 03/16/22 17:10 Temperature Temperature Source Pulse Rate 102 H 96 H 96 H Pulse Rate from SpO2 Sensor 100 H 96 H 96 H Respiratory Rate 21 20 21 Blood Pressure 101/69 Blood Pressure Mean 79 Blood Pressure Position Pulse Oximetry 95 95 95 Oxygen Delivery Method Sepsis Recent Fever Within 48 Hours Sepsis New/Unexplained Change in Mental Status Sepsis Action Taken by Nursing 03/16/22 17:20 03/16/22 17:30 03/16/22 17:40 Temperature Temperature Source Pulse Rate 95 H 104 H 97 H Pulse Rate from SpO2 Sensor 96 H 100 H 96 H Respiratory Rate 18 23 16 Blood Pressure 111/73 Blood Pressure Mean 85 Blood Pressure Position Pulse Oximetry 95 94 98 Oxygen Delivery Method Sepsis Recent Fever Within 48 Hours Sepsis New/Unexplained Change in Mental Status Sepsis Action Taken by Nursing 03/16/22 17:50 03/16/22 18:00 03/16/22 18:10 Temperature Temperature Source Pulse Rate 100 H 100 H 98 H Pulse Rate from SpO2 Sensor 100 H 101 H 99 H Respiratory Rate 19 32 H 17 Blood Pressure 113/72 Blood Pressure Mean 85 Blood Pressure Position Pulse Oximetry 100 97 99 Oxygen Delivery Method Sepsis Recent Fever Within 48 Hours Sepsis New/Unexplained Change in Mental Status Sepsis Action Taken by Nursing 03/16/22 18:20 Temperature Temperature Source Pulse Rate 100 H Pulse Rate from SpO2 Sensor 99 H Respiratory Rate 19 Blood Pressure Blood Pressure Mean Blood Pressure Position Pulse Oximetry 96 Oxygen Delivery Method Sepsis Recent Fever Within 48 Hours Sepsis New/Unexplained Change in Mental Status Sepsis Action Taken by Nursing CONSTITUTIONAL/VITAL SIGNS: Reviewed / noted above. GENERAL: Non-toxic in appearance. INTEGUMENTARY: Warm, dry, and [place]. HEAD: Normocephalic. EYES: without scleral icterus or trauma. ENT/OROPHARYNX: clear and moist. LYMPHADENOPATHY/NECK: Is supple without lymphadenopathy or meningismus. RESPIRATORY: Clear to auscultation bilaterally. No increased work of breathing. CARDIOVASCULAR: Regular rate and rhythm. GI/ABDOMEN: Soft and nontender. No organomegaly or pulsatile mass. EXTREMITIES: Warm and well perfused. BACK: No CVA tenderness. NEUROLOGICAL: Intact without focal deficits. PSYCHIATRIC: normal affect. MUSCULOSKELETAL: Normally developed with good muscle tone. TRIAGE NURSING DOCUMENTATION REVIEWED. Course Administered Medications Vancomycin HCl 1,250 mg/ (Sodium Chloride) 525 mls @ 200 mls/hr IV NOW ONE Stop: 03/16/22 20:11 Last Admin: 03/16/22 18:16 Dose: 200 mls/hr Documented by: [id number] Discontinued Medications Cefepime HCl (Maxipime) 2,000 mg in 20 mls @ 5 mls/min IV NOW STA; Protocol Stop: 03/16/22 17:37 Last Admin: 03/16/22 18:09 Dose: 5 mls/min Documented by: [id number] Lorazepam (Lorazepam 2 Mg/1 Ml Vial) 1 mg IV NOW STA Stop: 03/16/22 16:42 Last Admin: 03/16/22 17:01 Dose: Not Given Documented by: [id number] Medical Decision Making Differential Diagnosis Differential includes viral illness, influenza, streptococcal pharyngitis, meningitis, pneumonia, sinusitis, UTI, pyelonephritis, otitis media. Medical Records Attestation: I reviewed the patient's medical records. Home Medications Current Medication List: was personally reviewed by me Laboratory Data Attestation: I reviewed the patient's lab results. Result diagrams: 03/16/22 14:40 03/16/22 14:40 Lab Results 03/16/22 03/16/22 03/16/22 Range/Units 14:40 14:40 14:40 WBC 12.86 H (4.8-10.8) K/uL RBC 4.14 L (4.2-5.4) M/uL Hgb 11.2 L (12.0-16.0) g/dL Hct 34.5 L (37-47) % MCV 83.3 (80-100) fL MCH 27.1 (25-34) pg MCHC 32.5 (32-36) g/dL RDW Std Deviation 44.5 (36.4-46.3) fL RDW Coeff of Lynda 14.7 H (11.5-14.5) % Plt Count 239 (130-400) K/uL MPV 9.5 (7.4-10.4) fL Immature Gran % (Auto) 0.3 % Neut % (Auto) 82.6 % Lymph % (Auto) 9.8 % Phelps % (Auto) 6.9 % Eos % (Auto) 0.2 % Baso % (Auto) 0.2 % Neut # (Auto) 10.63 H (1.4-6.5) K/uL Lymph # (Auto) 1.26 (1.2-3.4) K/uL Phelps # (Auto) 0.89 H (0.11-0.59) K/uL Eos # (Auto) 0.02 (0-0.5) K/uL Baso # (Auto) 0.02 (0-0.2) K/uL Immature Gran # (Auto) 0.04 H (0.00-0.02) K/uL Sodium 135 L (136-145) mmol/L Potassium 3.7 (3.5-5.1) mmol/L Chloride 100 (98-107) mmol/L Carbon Dioxide 27 (21-32) mmol/L Anion Gap 8 (3-11) BUN 14 (6-23) mg/dl Creatinine 0.62 (0.6-1.2) mg/dl Est Cr Clr Drug Dosing 80.1 ml/min Est GFR ( Amer) 111.2 ml/min Est GFR (Non-Af Amer) 96.0 ml/min BUN/Creatinine Ratio 22.6 H (10-20) Glucose 93 (70-99(Fasting)) mg/dl Calcium 9.7 (8.5-10.1) mg/dl Total Bilirubin 0.8 (0.2-1.0) mg/dl AST 19 (13-39) U/L ALT 4 L (7-52) U/L Alkaline Phosphatase 72 (34-104) U/L Total Protein 7.7 (6.0-8.3) gm/dl Albumin 4.3 (3.4-5.0) gm/dl Globulin 3.4 (2.5-4.0) gm/dl Albumin/Globulin Ratio 1.3 (0.9-2) Urine Color Urine Appearance (Clear) Urine pH (4.5-7.5) Ur Specific [place] (1.000-1.030) Urine Protein (Negative) Urine Glucose (UA) (Negative) Urine Ketones (Negative) Urine Blood (Negative) Urine Nitrite (Negative) Urine Bilirubin (Negative) Urine Urobilinogen (Negative) Ur Leukocyte Esterase (Negative) SARS-CoV-2, RNA, NAAT NEGATIVE (NEGATIVE) 03/16/22 Range/Units 18:15 WBC (4.8-10.8) K/uL RBC (4.2-5.4) M/uL Hgb (12.0-16.0) g/dL Hct (37-47) % MCV (80-100) fL MCH (25-34) pg MCHC (32-36) g/dL RDW Std Deviation (36.4-46.3) fL RDW Coeff of Lynda (11.5-14.5) % Plt Count (130-400) K/uL MPV (7.4-10.4) fL Immature Gran % (Auto) % Neut % (Auto) % Lymph % (Auto) % [place] % (Auto) % Eos % (Auto) % Baso % (Auto) % Neut # (Auto) (1.4-6.5) K/uL Lymph # (Auto) (1.2-3.4) K/uL [place] # (Auto) (0.11-0.59) K/uL Eos # (Auto) (0-0.5) K/uL Baso # (Auto) (0-0.2) K/uL Immature Gran # (Auto) (0.00-0.02) K/uL Sodium (136-145) mmol/L Potassium (3.5-5.1) mmol/L Chloride (98-107) mmol/L Carbon Dioxide (21-32) mmol/L Anion Gap (3-11) BUN (6-23) mg/dl Creatinine (0.6-1.2) mg/dl Est Cr Clr Drug Dosing ml/min Est GFR ( Amer) ml/min Est GFR (Non-Af Amer) ml/min BUN/Creatinine Ratio (10-20) Glucose (70-99(Fasting)) mg/dl Calcium (8.5-10.1) mg/dl Total Bilirubin (0.2-1.0) mg/dl AST (13-39) U/L ALT (7-52) U/L Alkaline Phosphatase (34-104) U/L Total Protein (6.0-8.3) gm/dl Albumin (3.4-5.0) gm/dl Globulin (2.5-4.0) gm/dl Albumin/Globulin Ratio (0.9-2) Urine Color Yellow Urine Appearance Clear (Clear) Urine pH 6.5 (4.5-7.5) Ur Specific [place] 1.005 (1.000-1.030) Urine Protein Negative (Negative) Urine Glucose (UA) Negative (Negative) Urine Ketones Negative (Negative) Urine Blood Negative (Negative) Urine Nitrite Negative (Negative) Urine Bilirubin Negative (Negative) Urine Urobilinogen Negative (Negative) Ur Leukocyte Esterase Negative (Negative) SARS-CoV-2, RNA, NAAT (NEGATIVE) Imaging Data Radiologist's Impression: Chest X-Ray 03/16/22 16:25 SINGLE VIEW CHEST CLINICAL HISTORY: Dyspnea FINDINGS: An AP, portable, upright chest radiograph is compared to study dated 06/30/2013. A left PICC line is in place. The tip of the catheter projects over the cavoatrial junction. The cardiomediastinal silhouette is unremarkable. The lungs and pleural spaces are clear. No pneumothorax is seen. The skeletal structures are osteopenic. The bony thorax is grossly intact. IMPRESSION: No active disease in the chest. ACT 112: Negative or not required by law. Electronically signed by: Elías Begum M.D. 03/16/2022 4:44 PM ECG Data Attestation: I personally reviewed and interpreted this ECG as follows: Additional Comments: Twelve-lead EKG: Per my interpretation shows a sinus tach at a rate of 106. No ST elevation. No PVCs. Normal QTC. MDM Narrative 62-year-old female with a fever of uncertain origin. She is currently on IV Ancef for MSSA bacteremia related to a cervical and thoracic discitis as well as psoas muscle abscess. No other clear symptoms as a cause for her fever. Her white blood cell count was 12.8. EKG showed a sinus tach. Hemoglobin is 11.2. Metabolic panel was unremarkable. COVID test was negative. Urine did not show infection. I did speak with the patient's infectious disease doctor Dr. Chambers, from [facility]. He recommends admission and following blood cultures as well as MRIs of the spine to check for worsening of her discitis. I did speak with Dr. Rodriguez who will see the patient for admission. Impression & Plan Fever Discharge Plan Visit Data Chief Complaint: Illness Stated Complaint: DIARRHEA, CHILLS, LIGHTHEADED ED Provider: Inderjit Pak Discharge Problem: Fever Patient Disposition: Admitted As Inpatient Forms Stand Alone Forms: [facility] Prescriptions Prescriptions: No Action acetaminophen 650 mg Tablet Extended Release 1,300 mg PO Q12H PRN (Reason: Pain) RF: 0 Multivitamin 50 Plus Tablet 1 tab PO DAILY RF: 0 omega-3 fatty acids-fish oil 684-1,200 mg Capsule,Delayed Release(Dr/Ec) 1 cap PO DAILY RF: 0 [facility] 7,160 unit- 113 mg-1 mg Tablet 1 tab PO DAILY RF: 0 loratadine [Claritin] 10 mg Tablet 10 mg PO DAILY RF: 0 cefazolin 1 gram Piggyback 2 g IV Q8 RF: 0 oxycodone-acetaminophen 5-325 mg tablet 1 tab PO Q4H PRN (Reason: Pain) RF: 0 cyclobenzaprine 5 mg tablet 5 mg PO BID PRN (Reason: Muscle Spasm) RF: 0 Referrals Referrals: Elroy Olivo DO [Primary Care Provider] -
[2022-03-16] MEDS ORDERED: oxyCODONE HCL IR 5 MG TAB (IMMEDIATE RELEASE) PO PRN (20:37)
--- NOTE | 2022-03-16 21:01 | Pharmacy Report ---
Pharmacy Vanc AUC Short Note - Date of Service March 16, 2022 - Assessment & Plan Assessment 62 year old F receiving Vancomycin and Cefepime for empiric treatment of sepsis. * Recently hospitalized in September 2021 for epidural abscess and MSSA bacteremia - treated with Ancef. * Presented with fever of 38.1oC, tachycardia and leukocytosis of 12.9k. * Blood cultures pending. * ED physician spoke with ID doctor who recommended switching to Vancomycin and Cefepime. Plan Vancomycin * AUC/TRAE is the preferred PK/PD target for vancomycin * AUC guided dosing is effective and associated with decreased risk of nephrotoxicity compared to traditional trough targets * Loading dose of 1250 mg IV x 1 * Maintenance dose of 750 mg IV every 12 hours is predicted to achieve target AUC/TRAE of 400-600 mg/L.hr and may be associated with a 9% risk of nephrotoxicity * Trough level ordered for 03/18/22 prior to 1400 dose. Cefepime * Target of 2000 mg IV every 8 hours - appropriate Pharmacy will continue to follow and will adjust dose/frequency as necessary. Thank you.
[2022-03-16] MEDS: ENOXAPARIN INJ 40 MG/0.4 ML SYR SQ SCH (23:07)
[2022-03-17] MEDS: CEFEPIME 2,000 MG in SYRINGE 0 ML IV SCH ×3 (02:08→18:33)
[2022-03-17 05:23] LABS: Hematocrit (blood only) 32.7 % (37-47); Hemoglobin 10.7 g/dL (12.0-16.0); Mean Corpuscular Hemoglobin 27.9 pg (25-34); Mean Corpuscular Hgb Conc 32.7 g/dL (32-36); Mean Corpuscular Volume 85.4 fL (80-100); Mean Platelet Volume 9.3 fL (7.4-10.4); Platelet Count 206 K/uL (130-400); RDW Coefficient of Variation 14.9 % (11.5-14.5); Red Blood Count 3.83 M/uL (4.2-5.4); White Blood Count 7.02 K/uL (4.8-10.8)
[2022-03-17 05:48] LABS: BUN Creatinine Ratio 15.6 (10-20); Calcium 9.2 mg/dl (8.5-10.1); Creatinine Clr Calc Pharmacy 76.3 ml/min; Est GFR (African American) 110.1 ml/min; Potassium 4.1 mmol/L (3.5-5.1)
[2022-03-17] MEDS ORDERED: NON-FORMULARY MEDICATION (Multivitamin-Minerals-Lutein [Multivitamin 50 Plus] Tablet) PO SCH (09:00)
[2022-03-17] MEDS: OMEGA-3 (PURIFIED FISH OIL) 1 GM CAP PO SCH (09:03)
[2022-03-17] MEDS: LORATADINE 10 MG TAB PO SCH (09:03)
[2022-03-17] MEDS: CEROVITE ADV FORMULA TAB PO SCH (09:03)
[2022-03-17] MEDS: VANCOMYCIN HCL 750 MG in SODIUM CHLORIDE 0.9% 250 ML IV SCH ×2 (09:03→18:34)
--- NOTE | 2022-03-17 09:46 | Hospitalist Progress Note ---
Date of Service March 17, 2022 Assessment & Plan (1) Fever: (2) Discitis: Plan: History of recurrent MSSA bacteremia infection, thoracolumbar epidural abscess with bilateral iliopsoas abscess Presents with chills, dizziness, temp 38C,HR 122, leukocytosis. Possible sepsis and no lactate performed but procalcitonin was negative. Continues on Vanc/Cefepime Awaiting culture results MR spine reveals progressed discitis at T12-L1 level without epidural abscess or fluidcollection Resolution of bilateral psoas abscesses h/o CDI and later this evening she did report one loose stool. CD toxin pending collection. Awaiting ID recommendations and blood cultures. I discussed the case in entirety with DIL, Dr. Marita Mendosa ([phone]) and discussed the results of the MRI by phone with the patient this evening. All questions were answered to her satisfaction. Dispo - PCU Code status - Full code Julia Cano DO [facility] Hospitalist Admission and Anticipated Discharge Date Admission Date: March 16, 2022 Subjective 62-year-old female presented to the ER with a fever she has a known discitis in the spine as well as a psoas abscess that is previously been drained at [facility]. She is followed by ID Dr. Montiel at [facility]. Review of systems includes diarrhea and chills. This occurred on IV Ancef for MSSA cultured from her blood and psoas abscess. She has a history of C. difficile. She has been on oral vancomycin and stop that 1 day prior to arrival. On arrival to the ER she was febrile with a temp of 38 C and a pulse of 122. Vancomycin and cefepime were given in the ER. White blood cell count was 12 on admission. Urinalysis was negative. Blood cultures are pending. An MRI of the spine was ordered overnight and infectious disease was consulted. She is continued on vancomycin and cefepime. She feels well, is afebrile and without back or abdominal pain No stool today yet to check for CDI Ambulating in the hallways and feeling well overall awaiting ID consult. Review of Systems Review of Systems: All systems were reviewed and negative except as indicated on subjective above. Physical Exam Physical Exam: CONSTITUTIONAL: WNWD, vitals as above, generally well- appearing, NAD EYES: normal conjunctivae, no scleral icterus ENT: external ear and nose normal, MMM NECK: trachea midline, RESPIRATORY: clear to auscultation bilaterally, no crackles, rales or wheezes, normal respiratory effort CARDIOVASCULAR: regular rate and rhythm, S1 and 2 heard without murmurs, gallops or rubs, no JVD, no peripheral edema, CHEST: inspection of chest was normal GASTROINTESTINAL: normal bowel sounds, soft, nontender, ND, no guarding MUSCULOSKELETAL: strength 5/5 throughout, head is normocephalic and atraumatic, SKIN: warm and dry, NEUROLOGIC: patellar DTRs 2+ bilat. PERRL, EOMI, no facial palsy, no dysarthria. Touch, pain and proprioception normal. CN 2-12 grossly intact, no sensory deficit, normal cognition, normal speech, no tremor PSYCHIATRIC: alert cooperative and oriented to person, place and time. Euthymic mood, makes good eye contact, language grossly intact, recent and remote memory grossly intact. Results & Data Results & Data ([facility]) Vital Signs (Past 12 Hours) Vital Signs Temp Pulse Pulse Resp BP Pulse Ox 03/17/22 06:00 74 98/66 L 03/17/22 04:00 37.0 C 72 16 89/68 L 95 03/17/22 00:00 37.0 C 86 18 105/77 95 03/16/22 23:15 81 Laboratory Results Short CBC 03/16/22 03/17/22 Range/Units 14:40 04:44 WBC 12.86 H 7.02 (4.8-10.8) K/uL Hgb 11.2 L 10.7 L (12.0-16.0) g/dL Hct 34.5 L 32.7 L (37-47) % Plt Count 239 206 (130-400) K/uL BMP 03/16/22 03/17/22 14:40 04:44 Sodium 135 L 138 Potassium 3.7 4.1 Chloride 100 105 Carbon Dioxide 27 27 BUN 14 10 Creatinine 0.62 0.64 Glucose 93 91 Calcium 9.7 9.2 Liver Function 03/16/22 Range/Units 14:40 Total Bilirubin 0.8 (0.2-1.0) mg/dl AST 19 (13-39) U/L ALT 4 L (7-52) U/L Alkaline Phosphatase 72 (34-104) U/L Albumin 4.3 (3.4-5.0) gm/dl Urine 03/16/22 Range/Units 18:15 Urine Color Yellow Urine Appearance Clear (Clear) Urine pH 6.5 (4.5-7.5) Ur Specific [place] 1.005 (1.000-1.030) Urine Protein Negative (Negative) Urine Glucose (UA) Negative (Negative) Medications Administered Current Inpatient Medications Acetaminophen (Acetaminophen 325 Mg Tab) 650 mg PO Q4H PRN PRN Reason: pain or fever Stop: 04/15/22 18:28 Last Admin: 03/16/22 21:01 Dose: 650 mg Documented by: Enoxaparin Sodium (Enoxaparin Inj 40 Mg/0.4 Ml Syr) 40 mg SQ Q24H LISA Stop: 04/15/22 20:59 Last Admin: 03/16/22 23:07 Dose: 40 mg Documented by: Fish Oil ([place]-3 (Purified Fish Oil) 1 Gm Cap) 1 gm PO DAILY LISA Stop: 04/16/22 08:59 Last Admin: 03/17/22 09:03 Dose: 1 gm Documented by: Heparin Sodium (Beef Lung) (Heparin 10 Unit/Ml 5 Ml Flush) 5 ml FLUSH PRN PRN PRN Reason: Flush Stop: 04/16/22 01:59 Last Admin: 03/17/22 04:52 Dose: 5 ml Documented by: Cefepime HCl 2,000 mg/ Syringe 20 mls @ 5 mls/min IV Q8H LISA; Protocol Stop: 03/19/22 01:59 Last Admin: 03/17/22 09:03 Dose: 5 mls/min Documented by: Vancomycin HCl 750 mg/ Sodium (Chloride) 265 mls @ 200 mls/hr IV Q12H LISA; Protocol Stop: 03/19/22 01:59 Last Admin: 03/17/22 09:03 Dose: 200 mls/hr Documented by: Loratadine (Loratadine 10 Mg Tab) 10 mg PO DAILY LISA Stop: 04/16/22 08:59 Last Admin: 03/17/22 09:03 Dose: 10 mg Documented by: Miscellaneous Information (Vancomycin Consult Active) 1 ea N/A UD PRN PRN Reason: Consult Stop: 04/15/22 17:33 Multivitamins/Minerals (Cerovite Adv Formula Tab) 1 tab PO DAILY LISA Stop: 04/16/22 08:59 Last Admin: 03/17/22 09:03 Dose: 1 tab Documented by: Oxycodone HCl (Oxycodone Hcl Ir 5 Mg Tab (Immediate Release)) 5 mg PO QID PRN PRN Reason: Moderate Pain Stop: 03/30/22 20:36
--- NOTE | 2022-03-17 11:43 | Magnetic Resonance Report ---
MRI OF THE LUMBAR SPINE WITHOUT IV CONTRAST CLINICAL HISTORY: Sepsis. Fever and chills. History of discitis. COMPARISON STUDY: MRI of the thoracic spine dated 10/26/2021. TECHNIQUE: MRI of the thoracic spine is performed using various T1 and T2-weighted sequences in the a xial and sagittal planes. IV contrast was not missed report for this examination. FINDINGS: There is fluid seen within the T12-L1 disc space with significant marrow edema within the T 12 and L1 vertebral bodies. There is mild loss of height of L1, and significant surrounding paraverte bral edema. Findings are typical for discitis/osteomyelitis. There is no evidence of epidural abscess at this level on this unenhanced examination. No similar appearing marrow changes seen throughout th e remainder of the thoracic spine. There is a minimal chronic compression deformity of T3. Vertebral body height is preserved throughout the thoracic spine. There is mild hyperkyphosis. Mild disc desicc ation and loss of height is seen throughout the thoracic region. There is a small posterior disc bulg e at T11-T12. No central canal stenosis is identified. The thoracic spinal cord is normal in morpholo gy and signal intensity. The conus medullaris terminates at the level of L1. There is no evidence of high-grade neural foraminal stenosis throughout the thoracic region. The spinous processes appear int act. There is phlegmonous change within the anterior soft tissues with no organized/drainable fluid c ollection identified at this time. IMPRESSION: 1. There is evidence of discitis/osteomyelitis at T12-L1. 2. There is no clear evidence of epidural abscess on this unenhanced examination. 3. Significant paravertebral edema and phlegmonous change is noted in the paraspinous soft tissues at this level. No organized/drainable fluid collection is identified. Electronically signed by: Elías Begum M.D. 03/17/2022 11:42 AM
--- NOTE | 2022-03-17 14:00 | Magnetic Resonance Report ---
MR cervical spine wo con HISTORY: 62 years-old Female r/o discitis Acute neck pain in a patient with history of acute disciti s/osteomyelitis of the thoracolumbar spine. COMPARISON: MRI cervical spine 10/27/2021 TECHNIQUE: Multiplanar multisequence MRI of the cervical spine was obtained without the use of IV con trast. FINDINGS: Signal within the brainstem, cervical and imaged thoracic spinal cord appears normal. No acute fractu re, subluxation, significant bone marrow or soft tissue edema. There is resolution of the previously described marked prevertebral and intramuscular edema of the cervical spine described on the comparis on study. No epidural fluid collections or endplate erosions. Mild chronic appearing superior endplat e compression of the T3 segment. The lung apices appear clear. C2-C3: Uncovertebral hypertrophy with moderate facet arthrosis. The central canal and right neural fo ramen are patent. Mild left foraminal stenosis. C3-C4: Uncovertebral hypertrophy with tiny posterior annular disc bulge and severe facet arthrosis. T he central canal is patent. Mild right with [id number] left neural foraminal narrowing. C4-C5: Uncovertebral hypertrophy with small posterior annular disc bulge and severe facet arthrosis. Mild flattening of the ventral thecal sac without significant canal stenosis. The right neuroforamen is patent. Mild left neural foraminal narrowing. C5-C6: Moderate intervertebral disc space narrowing. Uncovertebral hypertrophy with posterior disc os teophyte complex and moderate facet arthrosis. Mild central canal stenosis, AP dimension of the theca l sac measuring 7 mm. There is mild right with at least moderate left neural foraminal stenosis. C6-C7: Moderate intervertebral disc space narrowing. Uncovertebral hypertrophy with small posterior d isc osteophyte complex and moderate facet arthrosis. The central canal and right neural foramen are p atent. There is mild left neural foraminal narrowing. C7-T1: Tiny posterior annular disc bulge with moderate facet arthrosis. The central canal and neural foramen are patent. IMPRESSION: 1. No acute fracture, subluxation, bone marrow edema or evidence of cervical discitis/osteomyelitis. 2. Resolution of the previously described soft tissue and intramuscular edema described on the 2020 study. 3. Discogenic degeneration with facet arthrosis as above results in mild C5-C6 central canal stenosis with multilevel neural foraminal narrowing. ACT 112: Negative or not required by law. The above report was generated using voice recognition software. It may contain grammatical, syntax o r spelling errors. Dictated: 03/17/2022 1:02 PM Transcribed: 03/17/2022 1:46 PM Judy [id number] [email or web address] Electronically signed by: Lew Power M.D. 03/17/2022 1:59 PM
--- NOTE | 2022-03-17 14:00 | Magnetic Resonance Report ---
MR LUMBAR SPINE WO CON CLINICAL HISTORY: 62 years-old Female with r/o discitis/abscess. Acute low back pain with possible a cute discitis/osteomyelitis. COMPARISON: MRI thoracic spine of same day, MRI lumbar spine 10/26/2021, CT abdomen and pelvis 2020 TECHNIQUE: Multiplanar, multi sequence MRI of the lumbar spine was performed without intravenous cont rast. FINDINGS: Uterine lesions are redemonstrated, incompletely characterized on this study however sugges tive of probable fibroids. Subcentimeter cystic foci within the right ovary. Moderate fecal retention . T2 hyperintense foci of the right hepatic lobe are incompletely characterized measuring up to 2 cm. The study is mildly motion degraded. Markedly decreased size of the previously described left psoas abscess. The previously described collection within the right psoas muscle has resolved. Moderate par avertebral edema at T12-L1. No epidural fluid collection. No abscess is identified. The conus medulla ris terminates at T12-L1. Signal within the imaged thoracic spinal cord appears normal. T1 and T2 hyp erintense foci of the sacrum and L5 vertebral body are redemonstrated suggestive of hemangiomata. No acute fracture or subluxation. T12-L1: Findings of acute discitis/osteomyelitis as above, progressed from 10/26/2021. No epidural f luid collections identified, however evaluation is limited without the use of IV contrast. The centra l canal and neural foramen appear patent. L1-L2: No central canal or neural foraminal stenosis. L2-L3: No central canal or neural foraminal stenosis. L3-L4: Mild intervertebral disc space narrowing with spondylitic spurring and small circumferential annular disc bulge. Ligamentum flavum thickening with moderate facet arthrosis and trace facet effusi ons. Flattening of the ventral thecal sac without significant central canal stenosis. There is mild n arrowing of the inferior neural foramina bilaterally. L4-L5: Mild intervertebral disc space narrowing with spondylitic spurring, small circumferential herberth ular disc bulge with ligamentum flavum thickening and severe facet arthrosis. Moderate sized bilatera l facet effusions. 9 mm synovial cyst on the left adjacent to the spinous process. Unchanged mild to moderate central canal stenosis, AP dimension of the thecal sac measuring 8 mm. Mild bilateral neural foraminal narrowing. L5-S1: Ligamentum flavum thickening with moderate facet arthrosis. Trace facet effusions. No central canal or neural foraminal stenosis. IMPRESSION: 1. Acute discitis/osteomyelitis at T12-L1 has progressively worsened from the 10/26/2021 exam. No epi dural abscess identified. 2. Paravertebral edema at this interspace is redemonstrated. There is resolution of the right psoas a nd near complete resolution of the left psoas abscesses which were described on the 10/26/2021 exam. ACT 112: Negative or not required by law. The above report was generated using voice recognition software. It may contain grammatical, syntax o r spelling errors. Dictated: 03/17/2022 12:53 PM Transcribed: 03/17/2022 1:46 PM Mirela [id number] [facility] Electronically signed by: Lew Power M.D. 03/17/2022 1:58 PM
[2022-03-17] MEDS ORDERED: VANCOMYCIN TROUGH ONE (19:30)
[2022-03-17] MEDS: ENOXAPARIN INJ 40 MG/0.4 ML SYR SQ SCH (22:00)
[2022-03-18] MEDS: CEFEPIME 2,000 MG in SYRINGE 0 ML IV SCH ×2 (02:09→10:13)
[2022-03-18 06:18] LABS: Hematocrit (blood only) 33.2 % (37-47); Hemoglobin 10.7 g/dL (12.0-16.0); Mean Corpuscular Hemoglobin 27.4 pg (25-34); Mean Corpuscular Hgb Conc 32.2 g/dL (32-36); Mean Corpuscular Volume 85.1 fL (80-100); Platelet Count 218 K/uL (130-400); RDW Coefficient of Variation 14.8 % (11.5-14.5); RDW Standard Deviation 46.2 fL (36.4-46.3)
[2022-03-18 06:39] LABS: BUN Creatinine Ratio 25.8 (10-20); C Reactive Protein 3.38 mg/dl (0-0.5); Calcium 9.3 mg/dl (8.5-10.1)
[2022-03-18] MEDS ORDERED: VANCOMYCIN TROUGH ONE ×3 (07:30→19:30)
[2022-03-18] MEDS: CEROVITE ADV FORMULA TAB PO SCH (08:02)
[2022-03-18] MEDS: OMEGA-3 (PURIFIED FISH OIL) 1 GM CAP PO SCH (08:02)
[2022-03-18] MEDS: VANCOMYCIN HCL 750 MG in SODIUM CHLORIDE 0.9% 250 ML IV SCH (08:02)
[2022-03-18] MEDS: LORATADINE 10 MG TAB PO SCH (08:02)
--- NOTE | 2022-03-18 09:12 | Pharmacy Report ---
Pharmacy [facility] Short Note - Date of Service March 18, 2022 - Assessment & Plan Assessment 62 year old F with recurrent MSSA bacteremia, thoracolumbar epidural abscess with bilateral iliopsoas abscess who presented with fever/chills, tachycardia and slight leukocytosis. Recent prolonged treatment with cefazolin IV. Recent C. difficile infection. Per conversation with ID, patient was started on vancomycin + cefepime. MR spine reveals progressed discitis at T12-L1 level without epidural abscess or fluid collection. Resolution of bilateral psoas abscesses. Preliminary BC from 03/16/22 with no growth to date Awaiting further ID evaluation/recommendations Plan Vancomycin * Current dose: 750 mg IV every 12 hours * Level obtained 03/18 @ 0532 resulted at 8.9 mcg/mL. * Increase dose to 1000 mg (18.6 mg/kg) IV every 12 hours - ordered to start at 1800 today * This regimen is predicted to achieve target AUC/TRAE of 400-600 mg/L.hr and may be associated with a 11 % risk of nephrotoxicity * predicted AUC/TRAE at steady state: 541mg/L.hr * predicted trough at steady state: 15.6 mcg/mL * Will repeat drug level in ~ 48 hours Pharmacy will continue to follow and will adjust dose/frequency as necessary. Thank you.
--- NOTE | 2022-03-18 09:21 | Hospitalist Progress Note ---
Date of Service March 18, 2022 Assessment & Plan (1) Discitis: Plan: History of recurrent MSSA bacteremia infection a couple of months ago with thoracolumbar epidural abscess with bilateral iliopsoas abscess Presents while on Ancef IV with chills, dizziness, temp 38C,HR 122, leukocytosis. Uncertain source. Started on Vanc/Cefepime and blood cultures negative ID saw her today and recommended to extend the Cefazolin with MRI improved from January MRI in [facility] [place]. Adding rifampin and followup with ID in 4 weeks. Dispo - PCU Code status - Full code Julia Cano DO [facility] Hospitalist Admission and Anticipated Discharge Date Admission Date: March 16, 2022 Subjective 62-year-old female presented to the ER with a fever she has a known discitis in the spine as well as a psoas abscess that is previously been drained at [facility]. She is followed by ID Dr. Montiel at [facility]. Review of systems includes diarrhea and chills. This occurred on IV Ancef for MSSA cultured from her blood and psoas abscess. She has a history of C. difficile. She has been on oral vancomycin and stop that 1 day prior to arrival. On arrival to the ER she was febrile with a temp of 38 C and a pulse of 122. Vancomycin and cefepime were given in the ER. White blood cell count was 12 on admission. She is continued on vancomycin and cefepime. She feels well, is afebrile and without back or abdominal pain No stool today yet to check for CDI Ambulating in the hallways and feeling well overall changes per ID consult present in room and family connected on the laptop Review of Systems Review of Systems: All systems were reviewed and negative except as indicated on subjective above. Physical Exam Physical Exam: CONSTITUTIONAL: WNWD, vitals as above, generally well- appearing, NAD EYES: normal conjunctivae, no scleral icterus ENT: external ear and nose normal, MMM NECK: trachea midline, RESPIRATORY: clear to auscultation bilaterally, no crackles, rales or wheezes, normal respiratory effort CARDIOVASCULAR: regular rate and rhythm, S1 and 2 heard without murmurs, gallops or rubs, no JVD, no peripheral edema, CHEST: inspection of chest was normal GASTROINTESTINAL: normal bowel sounds, soft, nontender, ND, no guarding MUSCULOSKELETAL: strength 5/5 throughout, head is normocephalic and atraumatic, SKIN: warm and dry, NEUROLOGIC: patellar DTRs 2+ bilat. PERRL, EOMI, no facial palsy, no dysarthria. Touch, pain and proprioception normal. CN 2-12 grossly intact, no sensory deficit, normal cognition, normal speech, no tremor PSYCHIATRIC: alert cooperative and oriented to person, place and time. Euthymic mood, makes good eye contact, language grossly intact, recent and remote memory grossly intact. Results & Data Results & Data ([facility]) Vital Signs (Past 12 Hours) Vital Signs Temp Pulse Pulse Pulse Resp BP Pulse Ox 03/18/22 07:53 36.6 C 61 16 104/64 100 03/18/22 04:08 36.5 C 58 L 18 89/53 L 96 03/17/22 23:50 73 03/17/22 22:45 36.8 C 71 18 107/73 96 Laboratory Results Short CBC 03/18/22 03/18/22 Range/Units 05:32 05:32 WBC 5.20 (4.8-10.8) K/uL Hgb 10.7 L (12.0-16.0) g/dL Hct 33.2 L (37-47) % Plt Count 218 (130-400) K/uL C-Reactive Protein 3.38 H (0-0.5) mg/dl BMP 03/18/22 05:32 Sodium 137 Potassium 4.0 Chloride 104 Carbon Dioxide 27 BUN 17 Creatinine 0.66 Glucose 84 Calcium 9.3 Medications Administered Current Inpatient Medications Acetaminophen (Acetaminophen 325 Mg Tab) 650 mg PO Q4H PRN PRN Reason: pain or fever Stop: 04/15/22 18:28 Last Admin: 03/16/22 21:01 Dose: 650 mg Documented by: Enoxaparin Sodium (Enoxaparin Inj 40 Mg/0.4 Ml Syr) 40 mg SQ Q24H LISA Stop: 04/15/22 20:59 Last Admin: 03/17/22 22:00 Dose: 40 mg Documented by: Fish Oil ([place]-3 (Purified Fish Oil) 1 Gm Cap) 1 gm PO DAILY LISA Stop: 04/16/22 08:59 Last Admin: 03/18/22 08:02 Dose: 1 gm Documented by: Heparin Sodium (Beef Lung) (Heparin 10 Unit/Ml 5 Ml Flush) 5 ml FLUSH PRN PRN PRN Reason: Flush Stop: 04/16/22 01:59 Last Admin: 03/18/22 05:38 Dose: 5 ml Documented by: Cefepime HCl 2,000 mg/ Syringe 20 mls @ 5 mls/min IV Q8H LISA; Protocol Stop: 03/19/22 01:59 Last Admin: 03/18/22 02:09 Dose: 5 mls/min Documented by: Vancomycin HCl 750 mg/ Sodium (Chloride) 265 mls @ 200 mls/hr IV Q12H LISA; Protocol Stop: 03/18/22 11:00 Last Admin: 03/18/22 08:02 Dose: 200 mls/hr Documented by: Vancomycin HCl 1,000 mg/ (Sodium Chloride) 270 mls @ 200 mls/hr IV Q12H LISA Stop: 03/19/22 01:59 Loratadine (Loratadine 10 Mg Tab) 10 mg PO DAILY [facility] Stop: 04/16/22 08:59 Last Admin: 03/18/22 08:02 Dose: 10 mg Documented by: Miscellaneous Information (Vancomycin Consult Active) 1 ea N/A UD PRN PRN Reason: Consult Stop: 04/15/22 17:33 Multivitamins/Minerals (Cerovite Adv Formula Tab) 1 tab PO DAILY [facility] Stop: 04/16/22 08:59 Last Admin: 03/18/22 08:02 Dose: 1 tab Documented by: Oxycodone HCl (Oxycodone Hcl Ir 5 Mg Tab (Immediate Release)) 5 mg PO QID PRN PRN Reason: Moderate Pain Stop: 03/30/22 20:36
[2022-03-18] MEDS ORDERED: VANCOMYCIN HCL 1,000 MG in SODIUM CHLORIDE 0.9% 250 ML IV SCH (18:00)
[2022-03-18] MEDS: rifAMPin 300 MG CAPSULE PO SCH (18:09)
[2022-03-18] MEDS: ceFAZolin 2000MG 2,000 MG/15 ML SYR IV SCH (18:10)
[2022-03-18] MEDS: ENOXAPARIN INJ 40 MG/0.4 ML SYR SQ SCH (20:31)
[2022-03-19] MEDS: ceFAZolin 2000MG 2,000 MG/15 ML SYR IV SCH ×2 (01:51→10:33)
[2022-03-19 07:57] LABS: Basophils # (auto) 0.03 K/uL (0-0.2); Basophils % (auto) 0.6 %; Eosinophils # (auto) 0.14 K/uL (0-0.5); Eosinophils % (auto) 2.8 %; Hematocrit (blood only) 34.8 % (37-47); Hemoglobin 11.5 g/dL (12.0-16.0); Immature Granulocytes # (auto) 0.01 K/uL (0.00-0.02); Immature Granulocytes % (auto) 0.2 %; Lymphocytes # (auto) 1.87 K/uL (1.2-3.4); Lymphocytes % (auto) 37.3 %; Mean Corpuscular Hemoglobin 27.9 pg (25-34); Mean Corpuscular Volume 84.5 fL (80-100); Mean Platelet Volume 10.2 fL (7.4-10.4); Monocytes # (auto) 0.53 K/uL (0.11-0.59); Monocytes % (auto) 10.6 %; Neutrophils # (auto) 2.43 K/uL (1.4-6.5); Neutrophils % (auto) 48.5 %; Platelet Count 233 K/uL (130-400); RDW Coefficient of Variation 14.8 % (11.5-14.5); RDW Standard Deviation 45.9 fL (36.4-46.3); Red Blood Count 4.12 M/uL (4.2-5.4); White Blood Count 5.01 K/uL (4.8-10.8)
[2022-03-19] MEDS: OMEGA-3 (PURIFIED FISH OIL) 1 GM CAP PO SCH (08:02)
[2022-03-19] MEDS: LORATADINE 10 MG TAB PO SCH (08:02)
[2022-03-19] MEDS: CEROVITE ADV FORMULA TAB PO SCH (08:02)
[2022-03-19] MEDS: rifAMPin 300 MG CAPSULE PO SCH (08:02)
[2022-03-19 08:16] LABS: Albumin Globulin Ratio 1.3 (0.9-2); Albumin Level 4.3 gm/dl (3.4-5.0); BUN Creatinine Ratio 24.6 (10-20); C Reactive Protein 1.95 mg/dl (0-0.5); Calcium 9.6 mg/dl (8.5-10.1); Creatinine Clr Calc Pharmacy 74.4 ml/min; Est GFR (African American) 109.5 ml/min; Est GFR (Non-African American) 94.5 ml/min; Globulin 3.2 gm/dl (2.5-4.0); Total Protein 7.5 gm/dl (6.0-8.3)
--- NOTE | 2022-03-19 09:26 | Discharge Summary ---
Date of Service March 19, 2022 Admission HPI Per Admitting Provider 52-year-old woman with history of allergic rhinitis, hospitalization in September 2021 for thoracolumbar epidural abscess with bilateral iliopsoas abscess, MSSA bacteremia who presented today with chills. Patient reported that earlier today, she started having some dizziness. Shortly after started having chills but did not have fevers at home. Reported some diarrhea initially described as loose stool, nonbloody and then later on became more frequent small stools. Denies any abdominal pain, nausea, vomiting Reports some headache right now which she reports is likely from laying in ER. Denies any sore throat, congestion, cough, chest pain, shortness of breath, palpitation Reports chronic rhinorrhea from her allergic rhinitis. Denies any dysuria, frequency, urgency, hematuria Reports only low back dull pain occasionally usually with activity sometimes but not constant Review of ID outpatient chart, Patient had been on IV Ancef being managed by outpatient infectious disease for MSSA bacteremia, thoracolumbar epidural abscess with bilateral iliopsoas abscess [place] [facility] [place] Readmitted in 11/2021 with fever thought to be due to CDI and was treated with po vanco and imaging was stable at the time. Completed 8 weeks ancef. Was admitted again in 01/2022 and grew MSSA again was evaluated by Ortho at that time but no surgical intervention recommended. Was started on Ancef again with expected end date being 04/10/22 for a total of 10 weeks prior to this presentation On presentation to the ER, was noted to be tachycardic had a temperature of 38.1 lab work notable for WBC of 12,000. ER doctor spoke with infectious disease who recommend changing antibiotics to Vanco and cefepime and getting repeat scans. Reports family hx of Hypertension and eye problems in mother, Diabetes in father who is . Denied smoking, illicit drug use. Occasional alcohol use Denied any allergies Admission Exam Per Admitting Provider Constitutional: + well hydrated; no acute distress Eyes: PERRL, conjunctivae normal, anicteric sclerae ENMT: external ear and nose normal, oropharynx normal Respiratory: normal respiratory effort, lungs clear to auscultation Cardiovascular: Rate/Rhythm: regular rate and regular rhythm S1 S2 Gastrointestinal (Abdomen): normal bowel sounds, soft, nontender, no hepatosplenomegaly Musculoskeletal: no cyanosis or clubbing, extremities motor strength 5/5 No point tenderness of spine No pedal edema Neurologic: PERRL, EOMI, accommodation nl, no face palsy, no dysarthria Psychiatric: A+Ox3, euthymic affect Principal Diagnosis Discitis Discharge Exam General: Sitting comfortably in bed, not in distress, on room air HEENT: EOMI, ANGELICA, MMM Chest: Clear breath sounds bilaterally, no wheezes or crackles CVS: Regular rate and rhythm, normal heart sounds, no murmur Abdomen: Soft, non tender, not distended, normal bowel sounds Neuro: Awake, alert, oriented, conversing well, non focal Extremities: No cyanosis, clubbing or edema No back tenderness Discharge Data Allergies Allergy/AdvReac Type Severity Reaction Status Date / Time No Known Allergies Allergy Verified 03/16/22 17:34 Consultations 03/16/22 18:13 Consult Infectious Diseases Routine 03/18/22 13:28 Burn CD for patient Routine Ordered Studies 03/16/22 17:34 MR cervical spine wo con Stat MR lumbar spine wo con Stat MR thoracic spine wo con Stat Hospital Course (1) Discitis: History of recurrent MSSA bacteremia infection a couple of months ago with thoracolumbar epidural abscess with bilateral iliopsoas abscess Presents while on Ancef IV with chills, dizziness, temp 38C,HR 122, leukocytosis. - Per ID, perhaps transient bacteremia secondary to colonized catheter ? but since doing well clinically and no growth on blood clx, no need to remove catheter even if colonized. - Started on Vanc/Cefepime on admission and deescalated back to ancef with addition of rifampin per ID - ID saw her yesterday and recommended to extend the Cefazolin for total of 12 weeks until 04/24/22 with MRI improved [place] [facility] [place] - Also added rifampin 300 mg bid and followup with ID in 4 weeks. - F/u with ortho spine - Weekly CBC with diff, CMP, ESR while on IV antibiotics - Will need oral antibiotic suppression after IV antibiotic is completed - Discussed discharge plan and recommendations in detail with patient at bedside and family over the phone. [facility] Attestation I certify that this patient is under my care and that I, or a physicians customer assistant working with me, had a face to-face encounter that meets the [id number] encounter requirements with this patient. The encounter with the patient was in whole, or in part, for the following medical condition, which is the primary reason for home health care (list medical condition): I certify that, based on my findings, the following services are medically necessary home health services: My clinical findings support the need for the above services because: Further, I certify that my clinical findings support that this patient is homebound (i.e. absences from home require considerable and taxing effort and are for medical reasons or jainism services or infrequently or of short duration when for other reasons) because: Certification for Home Health Services: Based on the above findings, I certify that this patient is confined to the home and needs intermittent group home care, physical therapy and/or speech therapy or continues to need occupational therapy. The patient is under my care, and I have initiated the establishment of the plan of care. This patient will be followed by a physician who will periodically review the plan of care. Total Time Total Time Spent Total Time Spent (In Minutes): 32 Discharge Plan Discharge Items Patient Disposition: Home - Home Health Services Reason For Visit: CHILLS Discharge Diagnosis: Discitis Activity: Resume your previous activity Non-emergency contact: Primary Care Provider Call non-emergency contact if: you have any medication questions, your symptoms worsen, your pain is concerning for you and you have a fever Follow-up/Referrals: Elroy Olivo, [Primary Care Provider] - Diet: Regular Addtl Attending Provider Instructions: Continue IV ancef until 04/24/22 Continue rifampin 300 mg twice daily You will need weekly labs ( CBC with diff, CMP, CRP) weekly while on antibiotics and this will be reviewed by your family doctor You will need ID follow up in 4 weeks You will need follow up with ortho spine You will need chronic oral antibiotic for suppression once IV antibiotic is done Pending Studies at Discharge: No Stand-Alone Forms: My [employer], Smoking Cessation Medications and DC Order Prescriptions: New rifampin 300 mg Capsule 300 mg PO BID Qty: 60 RF: 0 Continued acetaminophen 650 mg Tablet Extended Release 1,300 mg PO Q12H PRN (Reason: Pain) RF: 0 Multivitamin 50 Plus Tablet 1 tab PO DAILY RF: 0 omega-3 fatty acids-fish oil 684-1,200 mg Capsule,Delayed Release(Dr/Ec) 1 cap PO DAILY RF: 0 Macuvite Eye Care 7,160 unit- 113 mg-1 mg Tablet 1 tab PO DAILY RF: 0 loratadine [Claritin] 10 mg Tablet 10 mg PO DAILY RF: 0 cefazolin 1 gram Piggyback 2 g IV Q8 RF: 0 oxycodone-acetaminophen 5-325 mg tablet 1 tab PO Q4H PRN (Reason: Pain) RF: 0 cyclobenzaprine 5 mg tablet 5 mg PO BID PRN (Reason: Muscle Spasm) RF: 0 Discharge Orders: Discharge Order (Routine); Ordered 03/19/22 Ordered By: Naveed Raymond Admission Data Admit Date/Time: 03/16/22 18:13 Attending Provider: Naveed Raymond Admit Provider: Jennifer Lima I. Primary Care Provider: Elroy Olivo Other Providers: Hansel Huerta ; Juan Walden ; Clint Saldivar I. ; Silvino Marx II ; Natalie Faith ; Rl Chavarria ; Marcos Santos ; [facility] Other Interventions: Discharge Summary Assessment (RN) Last Done: 03/19/22 10:30
--- NOTE | 2022-03-26 11:23 | Coding Query ---
Patient did not have sepsis, severe sepsis, septicemia or septic shock. She might have transient bacteremia but blood culture was negative, so can not confirm. The same antibiotics were continued. So, based on all available information, I would label it as just 'discitis'. Thanks. SEPSIS To promote full compliance with coding requirements relating to patient care, physician participation is requested in all cases of jewel sawyer uncertainty. Please assist us with the question(s) below: In responding to this query, please exercise your independent professional judgement. The fact that a question is asked does not imply that any particular answer is desired or expected. We appreciate your clarification on this issue. Throughout the medical record, you have clearly documented a localized infection and your patient has clinical evidence of a generalized sepsis or severe sepsis. The term urosepsis is a nonspecific entity and is coded as an UTI. If the patient has sepsis, severe sepsis, from an urinary source or some other source, please clarify in your response below. The medical record reflects the following clinical findings: Patient with a history of epidural abscess. Discharge Summary states Discitis. 03/17 progress note mentions Sepsis .. 03/18 progress note documented possible sepsis, listing clinical indicators. Pt with a history of MSSA bacteremia. Please document below the diagnosis that was treated during this Inpatient stay. Thanks for your help! Juan Morris, [facility] ____ ( )Bacteremia (Nonspecific laboratory finding of bacteria in the blood) Specify Organism ( ) Present on Admission ( ) Not present on admission ( ) Unable to clinically determine ( ) Septicemia (Systemic disease associated with the presence of pathogenic microorganisms in the blood): Specify Organism ( ) Present on Admission ( ) Not present on admission ( ) Unable to clinically determine ( ) Sepsis Specify Organism Specify Associated Condition/Diagnosis ( ) Present on Admission ( ) Not present on admission ( ) Unable to clinically determine ( ) Severe Sepsis (Sepsis associated with acute organ dysfunction) Specify Organism Specify Associated Condition/Diagnosis ( ) Present on Admission ( ) Not present on admission ( ) Unable to clinically determine ( ) Septic Shock (Severe sepsis with acute circulatory failure, unexplained by other causes) ( ) Present on Admission ( ) Not present on admission ( ) Unable to clinically determine ( ) Other, patient has: MTDD
== END 2022-03-19 11:20 | disposition home health service (06) | DRG 552 ==
LOC: ED 14:19 → 1E 18:13 → SUATTDRO 18:13 → 1E 20:09 → 2S 03-17 19:13